=== PATIENT | female | born 1995 | race Caucasian/White ===

== ENCOUNTER 2022-05-26 09:09 | Outpatient (REF) | payer BC, SELFPAY ==
[2022-05-26 10:31] LABS: Hematocrit 40.6 % (37.0-47.0); Hemoglobin 12.6 g/dl (12.0-16.0); Mean Corpuscular Hemoglobin 26.6 pg (27.0-33.0); Mean Corpuscular Volume 85.7 fL (80.0-98.0); Mean Platelet Volume 8.5 fL (9.4-12.3); Platelet Count 434 X10*3/uL (160-400); Red Blood Count 4.74 X10*6/uL (4.20-5.50); Red Cell Distribution Width 13.6 % (11.0-16.0); White Blood Count 9.3 X10*3/uL (4.8-10.8)
[2022-05-26 11:08] LABS: Alanine Aminotransferase 26 U/L (0-31); Albumin Level 4.1 g/dL (3.5-5.0); Alkaline Phosphatase 99 U/L (39-117); Aspartate Amino Transferase 14 U/L (5-31); Bilirubin Direct 0.2 mg/dL (0.0-0.5); Bilirubin Total 0.6 mg/dL (0.0-1.0); Lipase 49 U/L (8-78)
[2022-06-03 10:29] LABS: 6-MMPN 1674 (<5700); 6-TGN 152 (235-400)
== END 2022-05-26 09:10 | disposition home or self-care (01) ==
LOC: HO.10HDL 09:09
PROVIDERS: Visit Provider Internal Medicine Gastroenterology
DX: K50.811 Crohn's disease of both small and large intestine with rectal bleeding (principal)
CPT/HCPCS: 36415; 80076; 80299; 83690; 85027

== ENCOUNTER 2022-07-02 09:57 | Outpatient (REF) | payer BC, SELFPAY ==
[2022-07-02 10:34] LABS: MANUAL DIFF FLAG NO
[2022-07-02 10:46] LABS: Basophils Percent Auto 0.9 % (0-2); Eosinophils Absolute Auto 0.1 X10*3/uL (0.0-0.4); Eosinophils Percent Auto 2.1 % (0-4); Hematocrit 37.5 % (37.0-47.0); Hemoglobin 11.9 g/dl (12.0-16.0); Imm Gran Abs Auto 0.03 X10*3/uL (0.00-0.03); Imm Gran Pct Auto 0.7 % (0.0-0.4); Lymphocytes Absolute Auto 1.2 X10*3/uL (1.2-4.9); Lymphocytes Percent Auto 29.2 % (20-40); Mean Corpuscular HGB Conc 31.7 g/dl (31.0-35.0); Mean Corpuscular Hemoglobin 27.7 pg (27.0-33.0); Mean Corpuscular Volume 87.2 fL (80.0-98.0); Mean Platelet Volume 8.7 fL (9.4-12.3); Monocytes Absolute Auto 0.4 X10*3/uL (0.1-1.2); Monocytes Percent Auto 8.7 % (2-11); Neutrophils Absolute Auto 2.5 x10*3/uL (2.0-8.3); Neutrophils Percent Auto 58.4 % (45-73); Platelet Count 347 X10*3/uL (160-400); Red Cell Distribution Width 16.2 % (11.0-16.0); White Blood Count 4.3 X10*3/uL (4.8-10.8)
[2022-07-02 11:18] LABS: Alanine Aminotransferase 15 U/L (0-31); Albumin Level 4.2 g/dL (3.5-5.0); Alkaline Phosphatase 134 U/L (39-117); Aspartate Amino Transferase 18 U/L (5-31); Bilirubin Direct 0.1 mg/dL (0.0-0.5); Bilirubin Total 0.4 mg/dL (0.0-1.0); Lipase 30 U/L (8-78); Total Protein 6.8 g/dL (6.5-8.0)
[2022-07-02 11:33] LABS: Erythrocyte Sedimentation Rate 12 MM/HR (0-20)
[2022-07-08 20:03] LABS: 6-MMPN 2541 (<5700); 6-TGN 169 (235-400)
== END 2022-07-02 09:58 | disposition home or self-care (01) ==
LOC: HO.10HDL 09:57
PROVIDERS: Visit Provider Internal Medicine Gastroenterology
DX: K50.811 Crohn's disease of both small and large intestine with rectal bleeding (principal)
CPT/HCPCS: 36415; 80076; 80299; 83690; 85025; 85652; 86140

== ENCOUNTER 2022-07-17 09:26 | Outpatient (REF) | payer BC, SELFPAY ==
--- NOTE | ~2022-07-17 | US_ITS ---
EXAMINATION: US ABDOMEN COMPLETE CLINICAL INFORMATION: Elevated LFTs. COMPARISON: None available. TECHNIQUE: Real-time imaging of the abdominal viscera. FINDINGS: PANCREAS: Normal. ABDOMINAL AORTA: The proximal, mid, and distal segments are normal in caliber. INFERIOR VENA CAVA: Visualized portions are normal. LIVER: The liver is normal in size. The liver contour is normal. Increased parenchymal echogenicity. No focal hepatic lesion. There is no intrahepatic biliary duct dilatation seen. GALLBLADDER: Normal. The gallbladder is physiologically distended without evidence of stones, sludge, polyps, wall thickening or pericholecystic fluid. COMMON BILE DUCT: Normal in caliber measuring 0.3 cm in diameter. RIGHT KIDNEY: Normal. No hydronephrosis. No renal calculi or focal parenchymal lesions. The kidney measures 11.4 cm in maximum dimension. LEFT KIDNEY: Normal. No hydronephrosis. No renal calculi or focal parenchymal lesions. The kidney measures 11.4 cm in maximum dimension. SPLEEN: Normal. The spleen measures 10.0 cm in maximum dimension. FREE FLUID: None. US/US abdomen complete IMPRESSION: Increased liver parenchymal echogenicity which could be seen with hepatic steatosis.
== END 2022-07-17 09:27 | disposition home or self-care (01) ==
LOC: HO.US 09:26
PROVIDERS: Visit Provider Internal Medicine Gastroenterology
DX: R79.89 Other specified abnormal findings of blood chemistry (principal); R94.5 Abnormal results of liver function studies
CPT/HCPCS: 76700

== ENCOUNTER 2022-09-02 09:40 | Outpatient (REF) | payer OTHER, SELFPAY ==
[2022-09-02 11:00] LABS: MANUAL DIFF FLAG NO
[2022-09-02 11:11] LABS: Basophils Percent Auto 0.7 % (0-2); Eosinophils Percent Auto 0.5 % (0-4); Hematocrit 39.3 % (37.0-47.0); Hemoglobin 12.3 g/dl (12.0-16.0); Imm Gran Abs Auto 0.07 X10*3/uL (0.00-0.03); Imm Gran Pct Auto 1.3 % (0.0-0.4); Lymphocytes Absolute Auto 1.2 X10*3/uL (1.2-4.9); Lymphocytes Percent Auto 21.9 % (20-40); Mean Corpuscular HGB Conc 31.3 g/dl (31.0-35.0); Mean Corpuscular Hemoglobin 27.4 pg (27.0-33.0); Mean Corpuscular Volume 87.5 fL (80.0-98.0); Mean Platelet Volume 8.4 fL (9.4-12.3); Monocytes Absolute Auto 0.3 X10*3/uL (0.1-1.2); Monocytes Percent Auto 4.5 % (2-11); Neutrophils Absolute Auto 3.9 x10*3/uL (2.0-8.3); Neutrophils Percent Auto 71.1 % (45-73); Platelet Count 353 X10*3/uL (160-400); Red Blood Count 4.49 X10*6/uL (4.20-5.50); Red Cell Distribution Width 14.7 % (11.0-16.0); White Blood Count 5.5 X10*3/uL (4.8-10.8)
[2022-09-02 11:32] LABS: Alanine Aminotransferase 13 U/L (0-31); Albumin Level 4.2 g/dL (3.5-5.0); Alkaline Phosphatase 109 U/L (39-117); Aspartate Amino Transferase 12 U/L (5-31); Bilirubin Direct 0.2 mg/dL (0.0-0.5); Bilirubin Total 0.4 mg/dL (0.0-1.0); C Reactive Protein 0.14 mg/dL (< or = 0.50); Lipase 38 U/L (8-78); Total Protein 7.4 g/dL (6.5-8.0)
[2022-09-02 11:59] LABS: Erythrocyte Sedimentation Rate 11 MM/HR (0-20)
[2022-09-04 17:04] LABS: TS Negative Control Passed; TS Panel A 0; TS Panel B 0; TS Positive Control Passed; TSpotTB Negative (Negative)
[2022-09-09 15:33] LABS: 6-MMPN 2139 (<5700); 6-TGN 234 (235-400)
== END 2022-09-02 09:41 | disposition home or self-care (01) ==
LOC: HO.10HDL 09:40
PROVIDERS: Visit Provider Internal Medicine Gastroenterology
DX: Z11.1 Encounter for screening for respiratory tuberculosis (principal); K50.811 Crohn's disease of both small and large intestine with rectal bleeding
CPT/HCPCS: 36415; 80076; 80299; 83690; 85025; 85652; 86140; 86481

== ENCOUNTER 2022-11-06 16:11 | Outpatient (REF) | payer OTHER, SELFPAY ==
[2022-11-06 16:30] LABS: MANUAL DIFF FLAG NO
[2022-11-06 17:26] LABS: Basophils Percent Auto 0.2 % (0-2); Hematocrit 40.4 % (37.0-47.0); Hemoglobin 12.4 g/dl (12.0-16.0); Imm Gran Abs Auto 0.12 X10*3/uL (0.00-0.03); Imm Gran Pct Auto 1.4 % (0.0-0.4); Lymphocytes Absolute Auto 0.7 X10*3/uL (1.2-4.9); Lymphocytes Percent Auto 8.5 % (20-40); Mean Corpuscular HGB Conc 30.7 g/dl (31.0-35.0); Mean Corpuscular Hemoglobin 26.6 pg (27.0-33.0); Mean Corpuscular Volume 86.5 fL (80.0-98.0); Mean Platelet Volume 8.6 fL (9.4-12.3); Monocytes Absolute Auto 0.4 X10*3/uL (0.1-1.2); Monocytes Percent Auto 4.3 % (2-11); Neutrophils Absolute Auto 7.4 x10*3/uL (2.0-8.3); Neutrophils Percent Auto 85.6 % (45-73); Platelet Count 368 X10*3/uL (160-400); Red Blood Count 4.67 X10*6/uL (4.20-5.50); Red Cell Distribution Width 14.9 % (11.0-16.0); White Blood Count 8.6 X10*3/uL (4.8-10.8)
[2022-11-06 17:48] LABS: Alanine Aminotransferase 14 U/L (0-31); Albumin Level 4.5 g/dL (3.5-5.0); Alkaline Phosphatase 101 U/L (39-117); Aspartate Amino Transferase 17 U/L (5-31); Bilirubin Direct 0.2 mg/dL (0.0-0.5); Bilirubin Total 0.4 mg/dL (0.0-1.0); C Reactive Protein < 0.10 mg/dL (< or = 0.50); Lipase 32 U/L (8-78); Total Protein 7.9 g/dL (6.5-8.0)
[2022-11-06 18:09] LABS: Erythrocyte Sedimentation Rate 7 MM/HR (0-20)
[2022-11-12 14:13] LABS: 6-MMPN 2625 (<5700); 6-TGN 125 (235-400)
== END 2022-11-06 16:12 | disposition home or self-care (01) ==
LOC: HO.LAB 16:11
PROVIDERS: PCP Internal Medicine; Visit Provider Internal Medicine Gastroenterology
DX: K50.811 Crohn's disease of both small and large intestine with rectal bleeding (principal)
CPT/HCPCS: 36415; 80076; 80299; 83690; 85025; 85652; 86140

== ENCOUNTER 2023-05-08 07:46 | Outpatient (REF) | payer OTHER, SELFPAY ==
[2023-05-08 07:49] VITALS: BP 127/72; PULSE 104; RESP 20; TEMP 36.5; O2SAT 100
[2023-05-08] MEDS: Risankizumab-rzaa 600 MG in Dextrose 5 % 250 ML 260 MG IV (09:18)
[2023-05-08 10:10] VITALS: BP 117/60; PULSE 81; TEMP 27.2
== END 2023-05-08 07:47 | disposition home or self-care (01) ==
LOC: HO.MDS 07:46
PROVIDERS: Visit Provider Internal Medicine Gastroenterology
DX: K50.90 Crohn's disease, unspecified, without complications (principal)
CPT/HCPCS: 96365; J2327

== ENCOUNTER 2023-07-03 09:00 | Outpatient (RCR) | payer OTHER, SELFPAY ==
[2023-06-05 09:04] VITALS: BP 117/72; PULSE 102; RESP 18; TEMP 36.7
[2023-06-05] MEDS: Risankizumab-rzaa 600 MG in Dextrose 5 % 250 ML 260 MG IV (10:06)
[2023-07-03 09:02] VITALS: BP 131/68; PULSE 95; RESP 20; TEMP 36.9; O2SAT 97
[2023-07-03] MEDS: Risankizumab-rzaa 600 MG in Dextrose 5 % 250 ML 260 MG IV (09:54)
== END 2023-07-03 15:27 | disposition home or self-care (01) ==
LOC: HO.INF 09:00
PROVIDERS: Visit Provider Internal Medicine Gastroenterology
DX: K50.90 Crohn's disease, unspecified, without complications (principal)
CPT/HCPCS: 96365; J2327

== ENCOUNTER 2023-07-08 12:19 | Outpatient (REF) | payer OTHER, SELFPAY ==
[2023-07-08 13:00] LABS: MANUAL DIFF FLAG NO
[2023-07-08 13:06] LABS: Basophils Absolute Auto 0.1 X10*3/uL (0.0-0.2); Basophils Percent Auto 1.1 % (0-2); Eosinophils Absolute Auto 0.1 X10*3/uL (0.0-0.4); Eosinophils Percent Auto 1.6 % (0-4); Hematocrit 41.2 % (37.0-47.0); Hemoglobin 13.2 g/dl (12.0-16.0); Imm Gran Abs Auto 0.02 X10*3/uL (0.00-0.03); Imm Gran Pct Auto 0.4 % (0.0-0.4); Lymphocytes Absolute Auto 1.9 X10*3/uL (1.2-4.9); Lymphocytes Percent Auto 32.8 % (20-40); Mean Corpuscular Hemoglobin 28.3 pg (27.0-33.0); Mean Corpuscular Volume 88.2 fL (80.0-98.0); Mean Platelet Volume 8.7 fL (9.4-12.3); Monocytes Absolute Auto 0.7 X10*3/uL (0.1-1.2); Monocytes Percent Auto 12.2 % (2-11); Neutrophils Absolute Auto 2.9 x10*3/uL (2.0-8.3); Neutrophils Percent Auto 51.9 % (45-73); Platelet Count 302 X10*3/uL (160-400); Red Blood Count 4.67 X10*6/uL (4.20-5.50); Red Cell Distribution Width 14.5 % (11.0-16.0); White Blood Count 5.6 X10*3/uL (4.8-10.8)
[2023-07-08 13:21] LABS: Alanine Aminotransferase 11 U/L (0-31); Albumin Level 4.2 g/dL (3.5-5.0); Alkaline Phosphatase 163 U/L (39-117); Aspartate Amino Transferase 14 U/L (5-31); Bilirubin Direct 0.1 mg/dL (0.0-0.5); Bilirubin Total 0.4 mg/dL (0.0-1.0); C Reactive Protein 0.16 mg/dL (< or = 0.50); Lipase 30 U/L (8-78); Total Protein 7.5 g/dL (6.5-8.0)
[2023-07-08 13:44] LABS: Erythrocyte Sedimentation Rate 10 MM/HR (0-20)
[2023-07-15 19:53] LABS: 6-MMPN <500 (<5700); 6-TGN 106 (235-400)
== END 2023-07-08 12:20 | disposition home or self-care (01) ==
LOC: HO.10HDL 12:19
PROVIDERS: Visit Provider Internal Medicine Gastroenterology
DX: K50.811 Crohn's disease of both small and large intestine with rectal bleeding (principal)
CPT/HCPCS: 36415; 80076; 80299; 83690; 85025; 85652; 86140

== ENCOUNTER 2024-03-14 07:51 | Outpatient (REF) | payer OTHER, SELFPAY ==
--- OUTSIDE RECORDS SUMMARY | 2024-03-14 07:54 | XMS_ITS ---
Author Organization [facility] Address [address] [facility] [address] [place] [address] Care Team Providers Care Field Hand Name Role Phone TEVIN PELAEZ Primary Care Provider UnavailDeclan Cassidy Jr [phone] REASON FOR VISIT labs Encounters Encounter Location Date Provider Diagnosis [facility] [address] [place] [address] [address] [place] [address] 07/16/2023 Declan Raphael Jr PLAN OF TREATMENT Next Appt Details Provider Name:Declan castro Jr, 03/28/2024 09:40:00 AM, [address] [place] [address], [address], [place], [address],
--- OUTSIDE RECORDS SUMMARY | 2024-03-14 07:55 | XMS_ITS | Patient Health Record ---
Author Organization [facility] Address [address] [place] [address] Care Team Providers Care Charter Boat Captain Name Role Phone TEVIN PELAEZ Primary Care Provider Declan Sims Jr Unavailable [phone] ALLERGIES Allergen (clinical drug ingredient) Drug/Non Drug Allergy documented on EMR Reaction Allergy Type Onset Date Status Latex Latex Unknown Allergy Active amoxicillin Amoxicillin Unknown Drug Allergy Act brenda Keflex Unknown Drug Allergy Active metronidazole Flagyl Unknown Drug Allergy Act brenda sulfamethoxazole / trimethoprim Bactrim Unknown Drug Allergy Active doxycycline Doxycycline Unknown Drug Allergy Act brenda Substance with sulfonamide structure and antibacterial mechanism of action (substance) Sulfa Antibiotics Unknown Drug Allergy A ctive RESULTS Component Value Reference Range Notes Thiopurine Metabolites Reviewed date:07/16/2023 10:47:01 AM Interpretation: Performing Lab:[facility], [address] [place] [id number] Notes/Report: 6-TGN 106 235-400 Result Units: pmol/8x10(8)RBC This test was developed and its analytical performance characteristics have been determined by [facility]. It has not been cleared or approved by the FDA. This assay has been validated pursuant to the CLIA regulations and is used for clinical purposes. 6-MMPN <500 <5700 Result Units: pmol/8x10(8)RBC These results are useful in assessing a patient's metabolism of azathioprine (AZA) or 6-mercaptopurine (6-MP). A 6-thioguanine (6-TG) level greater than 235 pmol/8x10(8) RBC has been associated with remission and very high levels have been associated with leucopenia. 6-methylmercaptopurine (6-MMP) levels greater than 5700 pmol/8x10(8) RBC may be associated with hepatoxicity. This test was developed and its analytical performance characteristics have been determined by [facility]. It has not been cleared or approved by the FDA. This assay has been validated pursuant to the CLIA regulations and is used for clinical purposes. THIS TEST WAS PERFORMED AT: [facility] [address] [place] [address] LASHAY KAPLAN MD Complete Blood Count Auto Di ff Reviewed date:07/09/2023 08:13:47 AM Interpretation: Performing Lab:[facility], [address] [place] [phone] Notes/Report: White Blood Count 5.6 4.8-10.8 X10*3/uL Red Blood Count 4.67 4.20-5.50 X10*6/uL Hemoglobin 13.2 12.0-16.0 g/dl Hematocrit 41.2 37.0-47.0 % Mean Corpuscular Volume 88.2 80.0-98.0 fL Mean Corpuscular Hemoglobin 28.3 27.0-33.0 pg Mean Corpuscular HGB Conc 32.0 31.0-35.0 g/dl Red Cell Distribution Width 14.5 11.0-16.0 % Platelet Count 302 160-400 X10*3/uL Mean Platelet Volume 8.7 9.4-12.3 fL Neutrophils Percent Auto 51.9 45-73 % Imm Gran Pct Auto 0.4 0.0-0.4 % Lymphocytes Percent Auto 32.8 20-40 % Monocytes Percent Auto 12.2 2-11 % Eosinophils Percent Auto 1.6 0-4 % Basophils Percent Auto 1.1 0-2 % NRBC Pct Auto 0.0 0.0-0.2 /100WBC Neutrophils Absolute Auto 2.9 2.0-8.3 x10*3/u L Imm Gran Abs Auto 0.02 0.00-0.03 X10*3/uL Lymphocytes Absolute Auto 1.9 1.2-4.9 X10*3/u L Monocytes Absolute Auto 0.7 0.1-1.2 X10*3/uL Eosinophils Absolute Auto 0.1 0.0-0.4 X10*3/u L Basophils Absolute Auto 0.1 0.0-0.2 X10*3/uL NRBC Abs Auto 0.000 0.0-0.012 X10*3/uL Erythrocyte Sedimentation Ra te Reviewed date:07/09/2023 08:13:52 AM Interpretation: Performing Lab:[facility], [address] [place] [phone] Notes/Report: Erythrocyte Sedimentation Rate 10 0-20 MM/HR Patients with polycythemia and many hemoglobin abnormalities may have depressed sed rates whereas patients with anemia may have elevated sed rates. Liver Panel Reviewed date:07/09/2023 08:14:32 AM Interpretation: Performing Lab:[address] [address] Notes/Report: Bilirubin Total 0.4 0.0-1.0 mg/dL Bilirubin Direct 0.1 0.0-0.5 mg/dL Aspartate Amino Transferase 14 5-31 U/L Alanine Aminotransferase 11 0-31 U/L Total Protein 7.5 6.5-8.0 g/dL Albumin Level 4.2 3.5-5.0 g/dL Alkaline Phosphatase 163 39-117 U/L C Reactive Protein Reviewed date:07/09/2023 08:14:22 AM Interpretation: Performing Lab:[facility], [address] [place] [phone] Notes/Report: C Reactive Protein 0.16 < or = 0.50 mg/dL Lipase Reviewed date:07/09/2023 08:14:11 AM Interpretation: Performing Lab:[address] [phone] Notes/Report: Lipase 30 8-78 U/L REASON FOR REFERRAL No Information MEDICATIONS Medication SIG (Take, Route, Frequency, Duration) Notes Start Date End Date Status Skyrizi 360 MG/2.4ML Inject 1 Subcutaneo us every 8 weeks 10/13/2023 Active Humira 40 MG/0.8ML 0.8 mL Subcutaneous every 2 weeks 11/17/2022 Active Clopidogrel Bisulfate 75 MG TAKE 1 TABLE T BY MOUTH EVERY DAY Oral for 30 Active Aspirin Low Dose 81 MG TAKE 1 TABLET BY MOUTH EVERY DAY Oral for 90 Active LORazepam 0.5 MG 1 tablet at bedtime as needed Orally Once a day Active Cetirizine HCl 10 MG 1 tablet Orally Onc e a day for 30 day(s) Active Skyrizi 150 MG/ML 1 mL Subcutaneous fo r 30 day(s) Active azaTHIOprine 100 MG 3 talets daily Orall y once a day Active Citalopram Hydrobromide 10 MG TAKE 1/2 TABLET BY MOUTH DAILY FOR 1 WEEK THEN INCREASE TO 1 TABLET DAILY Oral for 90 Active Norethindrone 0.35 MG Oral for 84 Active Pantoprazole Sodium 40 MG Oral for 30 Active IMMUNIZATIONS Vaccine Route Administration Date Status Comme nts Influenza Unknown 12/03/2021 Administered Influenza Unknown 12/09/2022 Administered SOCIAL HISTORY Tobacco Use: Social History Observation Description Date Details (start date - stop date) Never Smoker NA - NA Sex Assigned At : Social History Observation Description Sex Assigned At Unknown Tobacco Use/Smoking Question Answer Notes Patient is a nonsmoker Alcohol Screen Question Answer Notes Did you have a drink containing alcohol in the p ast year? No Points 0 Interpretation Negative PROBLEMS Problem Type ICD Code Onset Dates Problem Status W/U Status Risk SNOMED Code Notes Problem Crohn's disease of both small and large intestine with rectal bleeding (K50.811) Active confirmed 68062026 VITAL SIGNS Temperature 98.6 degrees Fahrenheit 07/08/2023 Blood pressure diastolic 00 mm Hg 07/08/2023 Height 65 in 07/08/2023 Blood pressure systolic 000 mm Hg 07/08/2023 Weight 187 lb 6 oz lbs 07/08/2023 BMI 31.18 kg/m2 07/08/2023 Encounters Encounter Location Date Provider Diagnosis [facility] [address] [place] [phone] 05/04/2023 Declan Raphael Jr [facility] [address] [place] [phone] 07/08/2023 Declan Raphael Jr Crohn's disease of both small and large intestine with rectal bleeding K50.811 [facility] [address] [facility] [place] [address] 01/06/2024 Declan Raphael Jr [facility] [address] [place], [place] [address] [place] [address] 03/27/2023 Declan Raphael Jr [facility] [address] [place] [phone] 04/03/2023 Declan Raphael Jr [facility] [address] [place] [phone] 07/16/2023 Declan Raphael Jr [facility] [address] [place] [phone] 10/13/2023 Declan Raphael Jr Crohn's disease of both small and large intestine with rectal bleeding K50.811 ASSESSMENTS Encounter Date Diagnosis Assessment Notes Treatment Notes Treatment Clinical Notes 07/08/2023 Crohn's disease of both small and large intestine with rectal bleeding (ICD-10 - K50.811) 10/13/2023 Crohn's disease of both small and large intestine with rectal bleeding (ICD-10 - K50.811) Labs to be done after third injection of higher dose Skyrizi PLAN OF TREATMENT Pending Test Test Name Order Date LIVER PROFILE 06/05/2022 LIVER PROFILE 04/28/2022 LIVER PROFILE 08/29/2022 LIVER PROFILE 10/13/2023 LIVER PROFILE 07/08/2023 LIVER PROFILE 11/06/2022 LIPASE 06/05/2022 LIPASE 04/28/2022 LIPASE 08/29/2022 LIPASE 07/08/2023 LIPASE 11/06/2022 CRP 06/05/2022 CRP 10/13/2023 CRP 08/29/2022 CRP 07/08/2023 CRP 11/06/2022 CBC w DIFF 06/05/2022 CBC w DIFF 08/29/2022 CBC w DIFF 07/08/2023 CBC with MANUAL DIFFERENTIAL 10/13/2023 CBC w/o DIFF 11/06/2022 CBC w/o DIFF 04/28/2022 SED RATE (ESR) 08/29/2022 SED RATE (ESR) 07/08/2023 SED RATE (ESR) 11/06/2022 SED RATE (ESR) 06/05/2022 SED RATE (ESR) 10/13/2023 US ABD 07/03/2022 PROMETHEUS ANSER UST 10/13/2023 T Spot TB 08/29/2022 Thiopurine Metabolites 04/28/2022 Thiopurine Metabolites 06/05/2022 Next Appt Details Provider Name:Declan Burdick castro Jr, 03/28/2024 09:40:00 AM, [address] [facility], [address], [place], [address], Insurance Providers Payer Name Payer Address Payer Phone Subscriber Number Group Number Insured Name Patient Relationship to Insured Coverage Start Date Coverage End Date [facility] [address] [place] [phone] [id number] ANGELSE ONOFRE Self - patient is the insured MEDICAL (GENERAL) HISTORY Medical History History ICD Code Crohn's disease small and la rge intestine, diagnosed at colonoscopy 03/10. Initial treatment prednisone/Imuran, Imuran dosing reduced to 100 mg daily from 150 secondary to vomiting and abdominal pain 07/08, recurrent symptoms below 20 mg of prednisone taper, Humira started after aneurysm treatment and bar exam, 12/08. Skyrizi started 05/09 for co-treatment of psoriasis and Crohn's. 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
--- OUTSIDE RECORDS SUMMARY | 2024-03-14 07:55 | XMS_ITS ---
Author Organization [facility] Address [address] [facility] [address] [place] [address] Care Team Providers Care Maintenance Helper Name Role Phone TEVIN PELAEZ Primary Care Provider Declan Sims Jr REASON FOR VISIT crohn's Encounters Encounter Location Date Provider Diagnosis [facility] [address] [place] [address] [address] [place] [address] 01/06/2024 Declan Raphael Jr PLAN OF TREATMENT Next Appt Details Provider Name:Declan castro Jr, 03/28/2024 09:40:00 AM, [address] [facility], [address], [place], [address],
--- OUTSIDE RECORDS SUMMARY | 2024-03-14 07:55 | XMS_ITS | Data Portability ---
Author Organization MALENA Rios s [address] Address [address] [place] [address] Care Team Providers Care Director Data Management Name Role Phone RHODA GILLIAM Primary Care Provider Assessment No assessment recorded. Plan of Treatment Reminders Order Date Submit Date Provider Last Modified By Organization Details Last Modified Time Details Appointments None recorded. Lab rapid flu (A+B) 2022 023 [email or web address] [facility] [address], [address] [place], [address], 3 13:11:16 urinalysis, dipstick 2022 023 antonioShyanne 2099[facility] [address], [address] [place], [address], 3 13:11:16 test, urine 2022 023 [facility] [address] [place] [address] [address], [address] [place], [address], 3 13:11:16 culture, urine 2022 023 [place] [facility], [address] [place] [address], [place], [address], 3 06:07:32 Referral emergency medicine referral - Abdominal pain with multiple complaints, including crohn's disease UTI and pyleonephri tis? Need further evaluation and treatment , diffuse abdominal pain. Complex medical history. 2022 023 [email or web address] a1 [facility], [address] [place], [address], 13:21:12 Procedures None recorded. Surgeries None recorded. Imaging None recorded. Medication Orders Macrobid 100 mg capsule 2022 023 [facility][id number], [address] [place], [address], 11:01:41 ofloxacin 0.3 % ear drops 2022 023 [facility][id number], [address] [place], [address], 11:32:16 Patient TargetsNo targets recorded. Patient Instructions Encounter Date Encounter Id Patient Instructions Last Modified By Organization Details Last Modified Time 05/13/2022 [id number] Abdominal pain c an have a wide variety of causes. Although we currently do not believe your pain is related to appendicitis or other serious cause, we cannot totally exclude the possibility of your symptoms being due a serious underlying problem. It is possible for potentially serious problems, such as appendicitis, to start with symptoms that are mild and appear non-threatening, only to become more severe later on. You should follow up as instructed and if your pain worsens, you should not hesitate to go to the Emergency Department to have your condition further evaluated. You should also follow up immediately if you develop any new symptoms which concern you, such as fever, nausea, vomiting, rectal bleeding, or any other symptom that concerns you. Not available 05/13/2022 13:05:38 09/13/2022 [id number] Water in the ear , from swimming or bathing, makes the ear canal prone to infection. Hot and humid weather also predisposes to infection. Symptoms of otitis externa include: ear pain, fullness or itching in the ear, ear drainage, and temporary loss of hearing. These symptoms are similar to those caused by otitis media (middle ear infection). To differentiate between external ear infection and middle ear infection, the provider looks in the ear with an instrument called an otoscope. It is important to distinguish between the two infections, as they are treated differently: External otitis is treated with drops in the ear canal, while middle ear infection is sometimes treated with an antibiotic by mouth. MEASURES YOU SHOULD TAKE TO HELP TREAT EXTERNAL EAR INFECTION: 1. Use the ear drops regularly, as directed on the prescription. 2. The malhotra to treatment is getting the drops down into the canal and keeping the medicine there. To accomplish this: Lie on your side, with the unaffected ear down. Put three to four drops in the infected ear canal, then gently pull the outer ear back and forth several times, working the medicine deeper into the ear canal. Remain still, msvy-uek-dgtn-down for about 15 minutes. 3. Keep the ear as dry as possible. Swimming should be postponed until the infection has cleared. Try to avoid getting water in the ear when bathing. If water does get in the ear, the canal can be gently dried with a hair blow dryer. Use the low heat setting, and keep the blow dryer about six inches from the ear. 4. Htbf-dty-xbfsaxz pain medications can relieve discomfort associated with external otitis. Acetaminophen (Tylenol), ibuprofen, or naproxen can be taken, depending on individual preference. 5. Return to the [facility] in about one week. The provider can check to make sure the infection has cleared, continue the medicine if needed, okay a return to swimming, etc. 6. To prevent repeated episodes of otitis externa, try to keep the ear canal dry. Gentle swabbing with Q-tips (never deep into the canal), along with a hair blow dryer (low heat), can be used to dry the ear canal if it gets wet. 7. Should you develop severe pain, fever, severe headache, or stiff neck, see your personal/referral doctor or go to the closest emergency department promptly. Otitis externa does not normally cause these symptoms; another problem, requiring different treatment, could be present Not available 09/13/2022 11:32:13 Reason for Referral Emergency Medicine Referral for Abdominal pain Abdominal pain with multiple complaints, including crohn's disease UTI and pyleonephritis? Need further evaluation and treatment , diffuse abdominal pain. Complex medical history. Referring Physician: Hima Bernardo, Urgent Care, Encounter Date: 05/13/2022 Results Created Date Observation Date Name Description Value Unit Range Abnormal Flag Note LastModifiedBy Organization Detail LastModifiedTime 03/28/20 23 05/15/2022 URINE CULTU RE, ROUTI NE urine culture, routine FINAL REPORT Not Available [facility] ([facility]) [address] [place], [address], 05/15/2022 06:07:32 05/14/19 23 05/15/2022 URINE CULTU RE, ROUTI NE result 1 COMMEN T Cultu re shows less than 10,00 0 colon y formi ng units of bacte alton per doc liter of urine . This colon y count is not gener ally consi dered to be clini felicitas signi fican t. Not Available [facility] ([facility]) [address] [facility], [place], [address], 05/15/2022 06:07:32 05/14/19 23 05/13/2022 rapid flu (A+B) Unknown Analyte Normal = Negati ve Not Available [address] [place], [address], 05/13/2022 12:35:31 05/14/19 23 05/13/2022 rapid flu (A+B) Unknown Analyte negati ve Not Available [address] [place], [address], 05/13/2022 12:35:31 05/14/19 23 05/13/2022 rapid flu (A+B) Unknown Analyte Normal = Negati ve Not Available [address] [place], [address], 05/13/2022 12:35:31 05/14/19 23 05/13/2022 rapid flu (A+B) Unknown Analyte negati ve Not Available [address] [place], [address], 05/13/2022 12:35:31 03/28/05/13/2022 pregn brooke test, urine Unknown Analyte Normal = Negati ve Not Available [facility] [address] [place], [address], 05/13/2022 12:32:10 05/14/19 23 05/13/2022 pregn brooke test, urine Unknown Analyte negati ve Not Available [facility] [place], [address], 05/13/2022 12:32:10 05/14/19 23 05/13/2022 urina lysis , dipst ick Unknown Analyte Normal = light yellow Not Available [address] [address] [place], [address], 05/13/2022 12:31:57 05/14/1905/13/2022 urina lysis , dipst ick Unknown Analyte Yellow Not Available [address] [place] [address] [address] [place], [address], 05/13/2022 12:31:57 05/14/1905/13/2022 urina lysis , dipst ick Unknown Analyte Normal = clear Not Available [address] [place], [address], 05/13/2022 12:31:57 05/14/1905/13/2022 urina lysis , dipst ick Unknown Analyte Slight ly Cloudy Not Available [address] [place], [address], 05/13/2022 12:31:57 05/14/19 23 05/13/2022 urina lysis , dipst ick Unknown Analyte Normal = negati ve Not Available [address] [place], [address], 05/13/2022 12:31:57 05/14/1905/13/2022 urina lysis , dipst ick Unknown Analyte Negati ve Not Available _[facility] [address] [place], [address], 05/13/2022 12:31:57 05/14/19 23 05/13/2022 urina lysis , dipst ick Unknown Analyte Normal = Negati ve Not Available ainsley montoya [address] [place], [address], 05/13/2022 12:31:57 05/14/1905/13/2022 urina lysis , dipst ick Unknown Analyte Negati ve Not Available [facility] mont[facility] [address] [place], [address], 05/13/2022 12:31:57 05/14/19 23 05/13/2022 urina lysis , dipst ick Unknown Analyte Normal = Negati ve Not Available [facility] [address] [place], [address], 05/13/2022 12:31:57 05/14/1905/13/2022 urina lysis , dipst ick Unknown Analyte Trace Not Available [address] [place] [address] [address] [place], [address], 05/13/2022 12:31:57 05/14/1905/13/2022 urina lysis , dipst ick Unknown Analyte Normal = 1.010, 1.015, 1.020 Not Available ains[facility] mont[facility] [address] [place], [address], 05/13/2022 12:31:57 05/14/19 23 05/13/2022 urina lysis , dipst ick Unknown Analyte 1.020 Not Available 2099 [facility] [address] [place], [address], 05/13/2022 12:31:57 05/14/19 23 05/13/2022 urina lysis , dipst ick Unknown Analyte Normal = Negati ve Not Available [address] [place], [address], 05/13/2022 12:31:57 05/14/19 23 05/13/2022 urina lysis , dipst ick Unknown Analyte Large Not Available 2099 [facility] [address] [place], [address], 05/13/2022 12:31:57 05/14/1905/13/2022 urina lysis , dipst ick Unknown Analyte Normal = 6.5, 7.0, 7.5, 8.0 Not Available [facility] [address] [place], [address], 05/13/2022 12:31:57 05/14/19 23 05/13/2022 urina lysis , dipst ick Unknown Analyte 6.0 Not Available 2099 [facility] [address] [place], [address], 05/13/2022 12:31:57 05/14/19 23 05/13/2022 urina lysis , dipst ick Unknown Analyte Normal = Negati ve Not Available [address] [place], [address], 05/13/2022 12:31:57 05/14/19 23 05/13/2022 urina lysis , dipst ick Unknown Analyte 100 mg/dL Not Available [facility] [address] [place], [address], 05/13/2022 12:31:57 05/14/19 23 05/13/2022 urina lysis , dipst ick Unknown Analyte Normal = 0.2, 1.0 Not Available [facility] [address] [place], [address], 05/13/2022 12:31:57 05/14/1905/13/2022 urina lysis , dipst ick Unknown Analyte 1.0 E.U./d L Not Available [facility] [address] [place], [address], 05/13/2022 12:31:57 05/14/1905/13/2022 urina lysis , dipst ick Unknown Analyte Normal = Negati ve Not Available [facility] [address] [place], [address], 05/13/2022 12:31:57 05/14/1905/13/2022 urina lysis , dipst ick Unknown Analyte Negati ve Not Available [facility] [address] [place], [address], 05/13/2022 12:31:57 05/14/1905/13/2022 urina lysis , dipst ick Unknown Analyte Normal = Negati ve Not Available [facility] [address] [place], [address], 05/13/2022 12:31:57 05/14/1905/13/2022 urina lysis , dipst ick Unknown Analyte Trace Not Available [facility] [address] [place], [address], 05/13/2022 12:31:57 Result Notes None recorded. Problems Name Problem SNOMED Code Status Onset Date Resolution Date Notes Provider Name and Address Organization Details Recorded Time Intracranial aneurysm 133041837 Active 2022 MALENA Hunter [facility] 11:02:36 Crohn's disease 50128398 Active Tyrell Lane null, PA - [facility] 3 12:31:38 Acid reflux 001676313 Active Tyrell mcconnell, PA - [facility] 3 12:31:53 Problem Notes None recorded. Procedures Surgical History Date Name Laterality Status Provider Name and Address Organization Details Recorded Time Appendectomy completed Tyrell Sherman PA - [facility] 05/13/2022 12:32:10 Knee arthroscopy/surge ry completed Tyrell Sherman PA - [facility] 05/13/2022 12:32:16 Imaging Results None recorded. Procedure Notes None recorded. Medical Equipment None Reported. Allergies Allergen ID Allergen Name Allergen Category Reaction Reaction Severity Criticality Documentation Date Start Date Code Code System Note Provider Name and Address Organization Details Recorded Time 924667 Bactrim medicatio n rash Not available Not available 05/13/2022 02076 9 RxNorm Tyrell mcconnell, PA - [facility] 3 12:28:32 523334 Flagyl medicatio n rash Not available Not available 05/13/202225628 6 RxNorm Tyrell mcconnell, PA - [facility] 3 12:28:42 850487 Keflex medicatio n rash Not available Not available 05/13/202201182 7 RxNorm Tyrell mcconnell, PA - [facility] 3 12:28:52 919045 Substance with sulfonami de structure and antibacte rial mechanism of action (substanc e) medicatio n rash Not available Not available 05/13/2022 37236 8003 SNOMED Tyrell mcconnell, PA - [facility] 3 12:29:01 911938 amoxicill in medicatio n rash Not available Not available 05/13/2022 723 RxNorm Tyrell mcconnell, PA - [facility] 3 12:29:06 100571 doxycycli ne Not available rash Not available Not available 05/13/2022 3640 RxNorm Tyrell mcconnell, PA - [facility] 3 12:29:15 Medications Name Sig Start Date Stop Date Status Note LastModified by Organization Details LastModified Time prednisone 10 mg tablet TAKE 3 TABLETS BY MOUTH ONCE A DAY DIRECTED 30 DAYS active Not Available Not Available No t Available ofloxacin 0.3 % eye drops INSTILL 1 DROP IN RIGHT EYE TWICE A DAY FOR 7-10 DAYS 05/13 completed Not Available Not Available Not Available citalopram 10 mg tablet TAKE 1/2 TABLET BY MOUTH DAILY FOR 1 WEEK AND THEN INCREASE TO 1 FULL TABLET DAILY. active Not Available Not Available No t Available valacyclovi r 1 gram tablet TAKE 1 TABLET BY MOUTH 3 TIMES A DAY FOR 7 DAYS 05/13 completed Not Available Not Available Not Available sucralfate 1 gram tablet TAKE 1 TABLET BY MOUTH 3 TIMES A DAY BEFORE MEALS AND BEDTIME,O N AN EMPTY STOMACH DISSOLVE IN WATER 05/13 completed Not Available Not Available Not Available phenazopyri dine 200 mg tablet PLEASE SEE ATTACHED FOR DETAILED DIRECTION S 05/13 completed Not Available Not Available Not Available prednisone 20 mg tablet TAKE 3 TABLET BY MOUTH DAILY,X7 DAYS 05/13 completed Not Available Not Available Not Available prednisone 5 mg tablet TAKE 8 TABLETS DAILY FOR 1 WEEK THEN TAPER BY 1 TABLET WEEKLY DIRECTED 09/13 completed Not Available Not Available Not Available azathioprin e 50 mg tablet TAKE 2 TABLETS BY MOUTH EVERY DAY active Not Available Not Available No t Available peg-electro lyte solution 420 gram oral solution DRINK 240 ML BY MOUTH EVERY 10 MINUTES 05/13 completed Not Available Not Available Not Available omeprazole 40 mg capsule,del ayed release TAKE 1 CAPSULE BY MOUTH EVERY DAY 05/13 completed Not Available Not Available Not Available vancomycin 125 mg capsule TAKE 1 CAPSULE BY MOUTH EVERY 6 HOURS FOR 10 DAYS 05/13 completed Not Available Not Available Not Available ketorolac 0.5 % eye drops INSTILL 1 DROP INTO RIGHT EYE 4 TIMES A DAY AND 1 DROP INTO LEFT EYE TWICE A DAY 05/13 completed Not Available Not Available Not Available ofloxacin 0.3 % ear drops INSTILL 5 DROPS INTO AFFECTED EAR(S) BY OTIC ROUTE TWICE DAILY X 10 DAYS. 2022 active Not Available Not Available Not Avai lable prednisolon e acetate 1 % eye drops,suspe nsion PUT 1 DROP INTO RIGHT EYE 4 TIMES A DAY AND 1 DROP INTO LEFT EYE TWICE A DAY 05/13 completed Not Available Not Available Not Available lorazepam 0.5 mg tablet TAKE 1 TABLET BY MOUTH TWICE A DAY NEEDED ANXIETY active Not Available Not Available No t Available metoclopram charito 5 mg tablet TAKE 1 TABLET BY MOUTH 3 TIMES A DAY BEFORE MEALS AND BEDTIME NEEDED NAUSEA FOR 10 DAYS 05/13 completed Not Available Not Available Not Available pantoprazol e 40 mg tablet,cyndee yed release TAKE 1 TABLET BY MOUTH TWICE A DAY active Not Available Not Available No t Available omeprazole 20 mg capsule,del ayed release TAKE 1 CAPSULE BY MOUTH TWICE A DAY 05/13 completed Not Available Not Available Not Available levofloxaci n 750 mg tablet TAKE 1 TABLET BY MOUTH DAILY,X10 DAYS. TAKE WITH FOOD. 05/13 completed Not Available Not Available Not Available norethindro ne (contracept brenda) 0.35 mg tablet TAKE 1 TABLET BY MOUTH EVERY DAY active Not Available Not Available No t Available ondansetron 4 mg disintegrat ing tablet TAKE 1 TABLET BY MOUTH EVERY 8 HOURS NEEDED FOR NAUSEA AND VOMITING FOR 3 DAYS 09/13 completed Not Available Not Available Not Available oxycodone 5 mg tablet TAKE 1 TABLET BY MOUTH EVERY 6 HOURS NEEDED SEVERE PAIN FOR 3 DAYS 09/13 completed Not Available Not Available Not Available nitrofurant oin monohydrate /macrocryst als 100 mg capsule TAKE 1 CAPSULE BY MOUTH TWICE A DAY FOR 7 DAYS 05/13 completed Not Available Not Available Not Available L norgest/E estradiol-E estrad 0.15 mg-30 mcg (84)/10 mcg(7) tabs,3mos TAKE 1 TABLET BY MOUTH EVERY DAY active Not Available Not Available No t Available Besivance 0.6 % eye drops,suspe nsion INSTILL 1 DROP INTO RIGHT EYE 3 TIMES A DAY FOR 7 DAYS 05/13 completed Not Available Not Available Not Available Vitals Date Recorded Body height Provider Name an d Address Organization Details Last Updated DateTime 05/13/2022 165.1 cm Tyrell Cabrera [facility] 05/13/2022 12:27:38 Date Recorded Body mass index (BMI) Body weight Provider Name and Address Organization Details Last Updated DateTime 05/13/2022 30.8 kg/m2 97550.59 g Tyrell [facility] 05/13/2022 12:27:42 Date Recorded Oxygen saturation Oxygen saturation in Arterial blood by Pulse oximetry Provider Name and Address Organization Details Last Updated DateTime 05/13/2022 97 % 97 % Tyrell Sherman PA - [facility] 05/13/2022 12:27:59 Date Recorded Pain severity - 0-10 verbal numeric rating [Score] - Reported Provider Name and Address Organization Details Last Updated DateTime 05/13/2022 6 Tyrell Sherman PA - [facility] 05/13/2022 12:28:01 Date Recorded Heart rate Provider Name an d Address Organization Details Last Updated DateTime 05/13/2022 109 /min Tyrell Sherman PA - [facility] 05/13/2022 12:28:06 Date Recorded Respiratory rate Provider Name a nd Address Organization Details Last Updated DateTime 05/13/2022 18 /min Tyrell Sherman PA - [facility] 05/13/2022 12:28:08 Date Recorded Body temperature Provider Name a nd Address Organization Details Last Updated DateTime 05/13/2022 97.9 [degF] Tyrell Sherman PA - [facility] 05/13/2022 12:28:18 Date Recorded Body height Provider Name an d Address Organization Details Last Updated DateTime 09/13/2022 169.55 cm ZIYADREINA BAUMJENNIFERJania PA - [facility] 09/13/2022 11:06:36 Date Recorded Pain severity - 0-10 verbal numeric rating [Score] - Reported Provider Name and Address Organization Details Last Updated DateTime 09/13/2022 5 ZIYAD ARGUELLES PA - [facility] 09/13/2022 11:04:15 Date Recorded Respiratory rate Provider Name a nd Address Organization Details Last Updated DateTime 09/13/2022 16 /min ZIYAD ARGUELLES PA - [facility] 09/13/2022 11:04:18 Date Recorded Body temperature Provider Name a nd Address Organization Details Last Updated DateTime 09/13/2022 98 [degF] ZIYAD ARGUELLES PA - [facility] 09/13/2022 11:05:10 Date Recorded Oxygen saturation Oxygen saturation in Arterial blood by Pulse oximetry Provider Name and Address Organization Details Last Updated DateTime 09/13/2022 98 % 98 % ZIYAD BAUMKELLY PA - [facility] 09/13/2022 11:05:17 Date Recorded Heart rate Provider Name an d Address Organization Details Last Updated DateTime 09/13/2022 105 /min ZIYAD BAUMKELLY PA - [facility] 09/13/2022 11:05:27 Date Recorded Body mass index (BMI) Body weight Provider Name and Address Organization Details Last Updated DateTime 09/13/2022 30.9 kg/m2 23432.1 g ZIYAD BAUMKELLY PA - [facility] 09/13/2022 11:06:41 Date Recorded Systolic blood pressure Diastolic blood pressure Provider Name and Address Organization Details Last Updated DateTime 05/13/2022 116 mm[Hg] 76 mm[Hg] Tyrell Sherman PA - [facility] 05/13/2022 12:27:52 Date Recorded Systolic blood pressure Diastolic blood pressure Provider Name and Address Organization Details Last Updated DateTime 09/13/2022 124 mm[Hg] 78 mm[Hg] ZIYAD BAUMKELLY PA - [facility] 09/13/2022 11:05:31 Social History Question Answer Notes LastModified by Organizat ion Details LastModified Time Tobacco Smoking Status Never Smoker ZIYAD BAUMKELLY mcconnell PA - [facility] 09/13/2022 11:03:08 What Is Your Level Of Alcohol Consumption? None [email or web address] Information not available 09/13/2022 Do You Use Any Illicit Or Recreational Drugs? No Information not available 05/13/2022 Have You Recently Traveled Abroad? No Information not available 05/13/2022 Do You Or Have You Ever Used Any Other Forms Of Tobacco Or Nicotine? No Information not available 05/13/2022 Sex: Unknown Functional Status None recorded. Mental Status None recorded. Family History Relationship Description Onset Age of this Age Resolved Age Notes LastModified by Organization Details LastModified Time Father No current problems or disability Not available 05/13 12:31:56 Mother No current problems or disability Not available 05/13 12:31:56 Medical History No medical history recorded. Gynecological History Statement/Question Response Is there any chance of ? No LMP N/A Obstetrics History GPAL:G 0 P 0 0 0 0 Immunizations Vaccine Type Date Status Note Provider Nam e and Address Organization Details Recorded Time Influenza, MDCK, quadrivalent, PF 02/03/2022 completed ZIYAD ARGUELLES null, PA - [facility] 09/13/2022 10:59:48 COVID-19, mRNA, LNP-S, PF, 100 mcg/0.5mL dose or 50 mcg/0.25mL dose 04/19/[address] null, PA - [facility] 05/13/2022 12:28:22 COVID-19, mRNA, LNP-S, PF, 30 mcg/0.3 mL dose 03/25/[address] null, PA - [facility] 05/13/2022 12:28:22 COVID-19, mRNA, LNP-S, PF, 30 mcg/0.3 mL dose 04/15/[address] null, PA - [facility] 05/13/2022 12:28:22 Influenza, split virus, quadrivalent, PF 01/06/[address] null, PA - [facility] 05/13/2022 12:28:22 Past Encounters Encounter ID Performer Location Encounter Start Date Encounter Closed Date Diagnosis/Indication Diagnosis SNOMED-CT Code Diagnosis ICD10 Code Diagnosis Note [id number] [address] [place] [address] 12/28/2021 08:06:00 12/28/2021 09:38:47 [id number] [address] [place] [address] 09/23/2019 16:36:00 09/23/2019 18:54:15 [id number] [address] [place] [address] 05/04/2020 10:41:49 05/04/2020 12:34:41 [id number] Hima Bernardo NP [address] [place] [address] 05/13/2022 12:12:21 05/13/2022 13:21:12 Abdominal pain 37114630 R10.9 Viral screening 83817981 4 Z11.59 Acute urin grace tract infection 332944853 N39.0 [id number] Hima Bernardo, TOOL GRINDING TECHNICIAN [address] [facility] [address] [place] [address] 09/13/2022 10:38:32 09/13/2022 11:38:12 Otitis externa of left ear 6650679151 036341 H60.92 Health Concerns Section Related Observation LastModified by Organization Detai ls LastModified Time None Recorded Concern Status LastModified by Organization Details LastModified Time None Recorded Advance Directives Directive None Recorded Payers Encounter Date Sequence Insurance Name Policy Number Policy Tineo Covered Member ID Tineo Member ID Guarantor Name 09/23/2019 1 [facility] (MEDICARE REPLACEMENT PPO) [id number] Jeet [id number] Nicole Emanuel 05/04/2020 1 [facility] ([place]PLACEMENT PPO) [id number] Jeet [id number] Nicole Emanuel 12/28/2021 1 [facility] (MEDICARE [place]PLACEMENT PPO) [id number] Jeet [id number] Nicole Emanuel 05/13/2022 1 [facility]: MEDICARE PPO BLUE (MEDICARE REPLACEMENT PPO) [id number] Jeet [id number] Nicole Emanuel 09/13/2022 1 [facility] [id number] Nicole Emanuel [id number] Nicole Emanuel Notes Date Note Type Note Provider Name and Address Organization Details Recorded Time 3 text/html Abdominal PainReported bypatient.source of patient information; Patient arrived at Urgent Care ambulatory; learning styles: auditory Location:generalized; epigastric Quality:aching;dull Severity:pain level 6/10;mild Duration:cannot identify; constant Onset/Timing:worse; sudden Context:no travel Modifying Factors:nothing makes it worse Associated Symptoms:no fever; no chills; no diarrhea; no constipation; no blood in the urine; no heartburn; no shortness of breath; no change in bowel/bladder habits;nausea;vomiting Other:denies possible Hima Bernardo NP [address] [place], [phone], [email or web address] [facility] 05/13/2022 20:33:25 3 text/html Ear problem UCReported bypatient.source of patient informationInformation obtained from patient; Patient arrived at Urgent Care ambulatory; learning styles: auditory Location:left Quality:pain;decreased hearing Severity:moderate Duration:1 weeks Context:no sick contacts; no recent swimming/water in ear; no recent air travel;history of ear aches/ear infections Modifying Factors:does not hurt to chew;hurts to lie on, or pull on ear; often has wax accumulation Associated Symptoms:popping noise in the ears;tender to touch Hima Bernardo NP [address] [place], [phone], [place] [employer] [facility] 09/13/2022 11:35:46 OBGyn Episode No OBEpisode recorded.
--- OUTSIDE RECORDS SUMMARY | 2024-03-14 07:55 | XMS_ITS ---
Author Organization [facility] Address [address] [place] [address] Care Team Providers Care Air Traffic Control Equipment Repairer Name Role Phone TEVIN PELAEZ Primary Care Provider Declan Sims Jr [phone] REASON FOR VISIT crohn's symptoms/ fyi update MEDICATIONS Medication SIG (Take, Route, Fr equency, Duration) Notes Start Date End Date Status Skyrizi 360 MG/2.4ML Inject 1 Subcutaneo us every 8 weeks 10/13/2023 Active Encounters Encounter Location Date Provider Diagnosis [facility] [address] [place] [address] 10/13/2023 Declan Raphael Jr Crohn's disease of both small and large intestine with rectal bleeding K50.811 ASSESSMENTS Encounter Date Diagnosis Assessment Notes Treatment Notes Treatment Clinical Notes 10/13/2023 Crohn's disease of both small and large intestine with rectal bleeding (ICD-10 - K50.811) Labs to be done after third injection of higher dose Skyrizi PLAN OF TREATMENT Medication Medication Name Sig Start Date Stop Date Notes Skyrizi 360 MG/2.4ML Inject 1 Subcutaneous every 8 weeks 0 10/13/2023 Treatment Notes Assessment Notes Crohn's disease of both smal l and large intestine with rectal bleeding Labs to be done after third injection of higher dose Skyrizi Pending Test Test Name Order Date LIVER PROFILE 10/13/2023 CRP 10/13/2023 CBC with MANUAL DIFFERENTIAL 10/13/2023 SED RATE (ESR) 10/13/2023 PROMETHEUS ANSER UST 10/13/2023 Next Appt Details Provider Name:Declan castro Jr, 03/28/2024 09:40:00 AM, [address], [address], [place], [address],
[2024-03-14 08:11] LABS: MANUAL DIFF FLAG NO
[2024-03-14 08:53] LABS: Basophils Absolute Auto 0.1 X10*3/uL (0.0-0.2); Basophils Percent Auto 0.9 % (0-2); Eosinophils Absolute Auto 0.2 X10*3/uL (0.0-0.4); Eosinophils Percent Auto 2.5 % (0-4); Hemoglobin 13.7 g/dl (12.0-16.0); Imm Gran Abs Auto 0.02 X10*3/uL (0.00-0.03); Imm Gran Pct Auto 0.3 % (0.0-0.4); Lymphocytes Absolute Auto 1.5 X10*3/uL (1.2-4.9); Lymphocytes Percent Auto 22.4 % (20-40); Mean Corpuscular HGB Conc 32.6 g/dl (31.0-35.0); Mean Corpuscular Hemoglobin 29.1 pg (27.0-33.0); Mean Corpuscular Volume 89.2 fL (80.0-98.0); Mean Platelet Volume 8.6 fL (9.4-12.3); Monocytes Absolute Auto 0.4 X10*3/uL (0.1-1.2); Monocytes Percent Auto 6.5 % (2-11); Neutrophils Absolute Auto 4.5 x10*3/uL (2.0-8.3); Neutrophils Percent Auto 67.4 % (45-73); Platelet Count 293 X10*3/uL (160-400); Red Blood Count 4.71 X10*6/uL (4.20-5.50); Red Cell Distribution Width 13.4 % (11.0-16.0); White Blood Count 6.7 X10*3/uL (4.8-10.8)
[2024-03-14 09:29] LABS: Erythrocyte Sedimentation Rate 9 MM/HR (0-20)
[2024-03-14 10:01] LABS: Alanine Aminotransferase 16 U/L (0-31); Albumin Level 4.1 g/dL (3.5-5.0); Alkaline Phosphatase 130 U/L (39-117); Aspartate Amino Transferase 19 U/L (5-31); Bilirubin Direct 0.2 mg/dL (0.0-0.5); Bilirubin Total 0.5 mg/dL (0.0-1.0); C Reactive Protein 0.22 mg/dL (< or = 0.50); Total Protein 7.7 g/dL (6.5-8.0)
== END 2024-03-14 07:52 | disposition home or self-care (01) ==
LOC: HO.LAB 07:51
PROVIDERS: Visit Provider Internal Medicine Gastroenterology
DX: K50.811 Crohn's disease of both small and large intestine with rectal bleeding (principal)
CPT/HCPCS: 36415; 80076; 80299; 82542; 85025; 85652; 86140

== ENCOUNTER 2024-07-27 06:35 | Outpatient (REF) | payer OTHER, SELFPAY ==
[2024-07-27 07:25] LABS: Hematocrit 40.4 % (37.0-47.0); Hemoglobin 13.6 g/dl (12.0-16.0); Mean Corpuscular HGB Conc 33.7 g/dl (31.0-35.0); Mean Corpuscular Hemoglobin 30.4 pg (27.0-33.0); Mean Corpuscular Volume 90.4 fL (80.0-98.0); Mean Platelet Volume 8.9 fL (9.4-12.3); Platelet Count 240 X10*3/uL (160-400); Red Blood Count 4.47 X10*6/uL (4.20-5.50); Red Cell Distribution Width 13.1 % (11.0-16.0); White Blood Count 4.9 X10*3/uL (4.8-10.8)
[2024-07-27 08:04] LABS: Erythrocyte Sedimentation Rate 7 MM/HR (0-20)
[2024-07-27 08:09] LABS: Alanine Aminotransferase 12 U/L (0-31); Albumin Level 4.4 g/dL (3.5-5.0); Alkaline Phosphatase 86 U/L (39-117); Aspartate Amino Transferase 18 U/L (5-31); Bilirubin Direct 0.2 mg/dL (0.0-0.5); Bilirubin Total 0.4 mg/dL (0.0-1.0); C Reactive Protein 0.95 mg/dL (< or = 0.50); Total Protein 7.3 g/dL (6.5-8.0)
[2024-07-28 14:08] LABS: Mitochondrial Antibodies NEGATIVE (NEGATIVE)
[2024-08-04 04:09] LABS: FIB-ALT 10 U/L (6-29); FIB-Alpha-2-Macroglobulin 192 mg/dL (106-279); FIB-Apolipoprotein A1 134 mg/dL (101-198); FIB-GGT 10 U/L (3-40); FIB-Haptoglobin 133 mg/dL (43-212); FIB-Total Bilirubin 0.3 mg/dL (0.2-1.2); Liver Fibrosis Score 0.05; Liver Fibrosis Stage F0; Nec Inflam Act Grade A0; Nec Inflam Act Score 0.02
== END 2024-07-27 06:36 | disposition home or self-care (01) ==
LOC: HO.LAB 06:35
PROVIDERS: PCP Internal Medicine Sports Medicine; Visit Provider Internal Medicine Gastroenterology
DX: K50.811 Crohn's disease of both small and large intestine with rectal bleeding (principal)
CPT/HCPCS: 36415; 80076; 81596; 85027; 85652; 86140; 86381

== ENCOUNTER 2024-08-26 10:24 | Outpatient (REF) | payer OTHER, SELFPAY ==
--- OUTSIDE RECORDS SUMMARY | 2024-08-26 10:56 | XMS_ITS | Patient Health Record ---
Author Organization [facility] Address [address] [place] [address] Care Team Providers Care Records Analysis Manager Name Role Phone TEVIN PELAEZ Primary Care Provider Declan Sims Jr Unavailable [phone] Allergies Allergen (clinical drug ingredient) Drug/Non Drug Allergy [...] Sulfa Antibiotics Unknown Drug Allergy A ctive Results Component Value Reference Range Notes Complete Blood Count Auto Di ff Reviewed date:03/16/2024 08:28:05 AM Interpretation: Performing Lab:[facility], [address] [place] [phone] Notes/Report: White Blood Count 6.7 4.8-10.8 X10*3/uL Red Blood Count 4.71 4.20-5.50 X10*6/uL Hemoglobin 13.7 12.0-16.0 g/dl Hematocrit 42.0 37.0-47.0 % Mean Corpuscular Volume 89.2 80.0-98.0 fL Mean Corpuscular Hemoglobin 29.1 27.0-33.0 pg Mean Corpuscular HGB Conc 32.6 31.0-35.0 g/dl Red Cell Distribution Width 13.4 11.0-16.0 % Platelet Count 293 160-400 X10*3/uL Mean Platelet Volume 8.6 9.4-12.3 fL Neutrophils Percent Auto 67.4 45-73 % Imm Gran Pct Auto 0.3 0.0-0.4 % Lymphocytes Percent Auto 22.4 20-40 % Monocytes Percent Auto 6.5 2-11 % Eosinophils Percent Auto 2.5 0-4 % Basophils Percent Auto 0.9 0-2 % NRBC Pct Auto 0.0 0.0-0.2 /100WBC Neutrophils Absolute Auto 4.5 2.0-8.3 x10*3/u L Imm Gran Abs Auto 0.02 0.00-0.03 X10*3/uL Lymphocytes Absolute Auto 1.5 1.2-4.9 X10*3/u L Monocytes Absolute Auto 0.4 0.1-1.2 X10*3/uL Eosinophils Absolute Auto 0.2 0.0-0.4 X10*3/u L Basophils Absolute Auto 0.1 0.0-0.2 X10*3/uL NRBC Abs Auto 0.000 0.0-0.012 X10*3/uL Erythrocyte Sedimentation Ra te Reviewed date:03/16/2024 08:27:51 AM Interpretation: Performing Lab:[facility], [address] [place] [phone] Notes/Report: Erythrocyte Sedimentation Rate 9 0-20 MM/HR Patients with polycythemia and many hemoglobin abnormalities may have depressed sed rates whereas patients with anemia may have elevated sed rates. Liver Panel Reviewed date:03/16/2024 08:27:45 AM Interpretation: Performing Lab:[address] [phone] Notes/Report: Bilirubin Total 0.5 0.0-1.0 mg/dL Bilirubin Direct 0.2 0.0-0.5 mg/dL Aspartate Amino Transferase 19 5-31 U/L Alanine Aminotransferase 16 0-31 U/L Total Protein 7.7 6.5-8.0 g/dL Albumin Level 4.1 3.5-5.0 g/dL Alkaline Phosphatase 130 39-117 U/L C Reactive Protein Reviewed date:03/16/2024 08:27:58 AM Interpretation: Performing Lab:[address] [phone] Notes/Report: C Reactive Protein 0.22 < or = 0.50 mg/dL Nereida Mckeon UST Reviewed date:03/22/2024 04:50:48 PM Interpretation: Performing Lab:[address] [address] Notes/Report: Nereida Mckeon UST SEE NOTE SEE SCA NNED RESULTS IN EMR Complete Blood Count no Diff Reviewed date:07/28/2024 11:02:46 AM Interpretation: Performing Lab:[address] [phone] Notes/Report: White Blood Count 4.9 4.8-10.8 X10*3/uL Red Blood Count 4.47 4.20-5.50 X10*6/uL Hemoglobin 13.6 12.0-16.0 g/dl Hematocrit 40.4 37.0-47.0 % Mean Corpuscular Volume 90.4 80.0-98.0 fL Mean Corpuscular Hemoglobin 30.4 27.0-33.0 pg Mean Corpuscular HGB Conc 33.7 31.0-35.0 g/dl Red Cell Distribution Width 13.1 11.0-16.0 % Platelet Count 240 160-400 X10*3/uL Mean Platelet Volume 8.9 9.4-12.3 fL NRBC Pct Auto 0.0 0.0-0.2 /100WBC NRBC Abs Auto 0.000 0.0-0.012 X10*3/uL Erythrocyte Sedimentation Ra te Reviewed date:07/28/2024 11:02:31 AM Interpretation: Performing Lab:[address] [address] Notes/Report: Erythrocyte Sedimentation Rate 7 0-20 MM/HR Patients with polycythemia and many hemoglobin abnormalities may have depressed sed rates whereas patients with anemia may have elevated sed rates. Liver Panel Reviewed date:07/28/2024 11:02:19 AM Interpretation: Performing Lab:[address] [address] Notes/Report: Bilirubin Total 0.4 0.0-1.0 mg/dL Bilirubin Direct 0.2 0.0-0.5 mg/dL Aspartate Amino Transferase 18 5-31 U/L Alanine Aminotransferase 12 0-31 U/L Total Protein 7.3 6.5-8.0 g/dL Albumin Level 4.4 3.5-5.0 g/dL Alkaline Phosphatase 86 39-117 U/L C Reactive Protein Reviewed date:07/28/2024 11:02:07 AM Interpretation: Performing Lab:[facility], [address] [place] [phone] Notes/Report: C Reactive Protein 0.95 < or = 0.50 mg/dL Liver Fibrosis Pnl Reviewed date:08/05/2024 03:52:52 PM Interpretation: Performing Lab:[facility], [address] [place] [phone] Notes/Report: Liver Fibrosis Score 0.05 Liver Fibrosis Stage F0 Liver Fibrosis Interpretation SEE NOTE no fibrosis Fibro Test Score (f) Metavir Score f>=0 and f<=0.21 : F0 (no fibrosis) f>0.21 and f<=0.27 : F0-F1 (no fibrosis) f>0.27 and f<=0.31 : F1 (minimal fibrosis) f>0.31 and f<=0.48 : F1-F2 (minimal fibrosis) f>0.48 and f<=0.58 : F2 (moderate fibrosis) f>0.58 and f<=0.72 : F3 (advanced fibrosis) f>0.72 and f<=0.74 : F3-F4 (advanced fibrosis) f>0.74 and f<=1.00 : F4 (severe fibrosis) Nec Inflam Act Score 0.02 Nec Inflam Act Grade A0 Nec Inflam Act Interpretation SEE NOTE no activity ActiTest Score (a) Metavir Score a>=0 and a<=0.17 : A0 (no activity) a>0.17 and a<=0.29 : A0-A1 (no activity) a>0.29 and a<=0.36 : A1 (minimal activity) a>0.36 and a<=0.52 : A1-A2 (minimal activity) a>0.52 and a<=0.60 : A2 (significant activity) a>0.60 and a<=0.62 : A2-A3 (significant activity) a>0.62 and a<=1.00 : A3 (severe activity) DGA-Ruzay-4-Macroglobulin 192 106-279 mg/dL FIB-Haptoglobin 133 43-212 mg/dL FIB-Apolipoprotein A1 134 101-198 mg/dL FIB-Total Bilirubin 0.3 0.2-1.2 mg/dL FIB-GGT 10 3-40 U/L FIB-ALT 10 6-29 U/L Reference ID [id number] Footnote SEE NOTE The reliability of results is dependent on compliance with the preanalytical and analytical conditions recommended by [employer]. The tests have to be deferred for: acute hemolysis, acute hepatitis, acute inflammation, extra hepatic cholestasis. The advice of a specialist should be sought for interpretation in chronic hemolysis and Gilbert's syndrome. The test interpretation is not validated in liver transplant patients. Isolated extreme values of one of the components should lead to caution in interpreting the results. In case of discordance between a biopsy result and a test, it is recommended to seek the advice of a specialist. The causes of these discordances could be due to a flaw of the test or to a flaw in the biopsy: i.e. a liver biopsy has a 33% variability rate for one fibrosis stage. FibroTest is interpretable for chronic hepatitis B and C, alcoholic and non alcoholic steatosis. ActiTest is interpretable for chronic hepatitis B and C. The performance characteristics have been determined by [facility]. It has not been cleared or approved by the U.S. Food and Drug Administration. Performance characteristics refer to the analytical performance of the test. [employer], the associated logo, [employer] and all associated [employer] boo are the registered trademarks of [employer]. All third republican boo - (R) and (TM) - are the property of their respective owners. (C) [id number] [employer]. All rights reserved. THIS TEST WAS PERFORMED AT: [facility] [facility] [place] [address] [place] [address] KAVITA PEREZ MD,PHD,DAVID Mitochondrial Antibody Reviewed date:08/02/2024 04:12:46 PM Interpretation: Performing Lab:[facility], [address] [place] [phone] Notes/Report: Mitochondrial Antibodies NEGATIVE NEGATIVE THIS TEST WAS PERFORMED AT: [facility] [address] [address] GIULIANO VIDAL MD Mitochondrial Ab Titer TNP Reason For Referral No Information Medications Medication SIG (Take, Route, Frequency, Duration) Notes Start Date End Date Status LORazepam 0.5 MG 1 tablet at bedtime as needed Orally Once a day Active Cetirizine HCl 10 MG 1 tablet Orally Onc e a day for 30 day(s) Active Skyrizi 150 MG/ML 1 mL Subcutaneous fo r 30 day(s) Active Prednisone 1 tab Oral for 14 days Active Skyrizi 360 MG/2.4ML Inject 1 Subcutaneo us every 8 weeks 10/13/2023 Active Pantoprazole Sodium 40 MG Oral for 30 Active Citalopram Hydrobromide 10 MG TAKE 1/2 TABLET BY MOUTH DAILY FOR 1 WEEK THEN INCREASE TO 1 TABLET DAILY Oral for 90 Active Norethindrone 0.35 MG Oral for 84 Active Immunizations Vaccine Route Administration Date Status Comme nts Influenza Unknown 12/03/2021 Administered Influenza Unknown 12/09/2022 Administered Influenza Unknown 12/08/2023 Administered Social History Tobacco Use: Social History Observation Description Date Details (start date - stop date) Never Smoker NA - NA Tobacco Use/Smoking Question Answer Notes Patient is a nonsmoker Alcohol Screen Question Answer Notes Did you have a drink containing alcohol in the p ast year? No Points 0 Interpretation Negative Problems Problem Type SNOMED Code ICD Code Onset Dates Problem Status W/U Status Risk Notes Problem Crohn''s disease of both small and large intestine with rectal bleeding (K50.811) Active confirmed Problem [id number] Alkaline phosphatase elevation (R74.8) Active confirmed Vital Signs Temperature 97.8 degrees Fahrenheit 03/28/2024 Blood pressure diastolic 00 mm Hg 03/28/2024 Height 65 in 03/28/2024 Blood pressure systolic 000 mm Hg 03/28/2024 Weight 188 lb 4 oz lbs 03/28/2024 BMI 31.32 kg/m2 03/28/2024 Encounters Encounter Location Date Provider Diagnosis [facility] [address] [place] [phone] 03/28/2024 Declan Raphael Jr Crohn's disease of both small and large intestine with rectal bleeding K50.811 and Alkaline phosphatase elevation R74.8 [facility] [address] [place] [address] 10/13/2023 Declan Raphael Jr Crohn's disease of both small and large intestine with rectal bleeding K50.811 [facility] [address] [place] [address] 03/22/2024 Declan Raphael Jr [facility] [address] [place] [address] 07/01/2024 Declan Raphael Jr Crohn''s disease of both small and large intestine with rectal bleeding K50.811 [facility] [address] [place] [address] 08/05/2024 Declanjuliana Raphael Jr Assessments Encounter Date Diagnosis (ICD Code) Assessment Notes Treatment Notes Treatment Clinical Notes Section Notes 03/28/2024 Crohn's disease of both small and large intestine with rectal bleeding (ICD-10 - K50.811) Crohn disease material was printed At this time, she is doing well. She will continue treatment with skyrizi. We recommended repeating laboratory tests in July or August and monitoring her alkaline phosphatase. She asked about taking an qdum-xjd-ikuica r supplements for immune system health, which we don't think is a problem. Because of the way skyrizi targets inflammation, it seems unlikely that her autoimmune conditions will be exacerbated by this. Followup in 12 months. 03/28/2024 Alkaline phosphatase elevation (ICD-10 - R74.8) At this time, she is doing well. She will continue treatment with skyrizi. We recommended repeating laboratory tests in July or August and monitoring her alkaline phosphatase. She asked about taking an sbrk-det-gltsme r supplements for immune system health, which we don't think is a problem. Because of the way skyrizi targets inflammation, it seems unlikely that her autoimmune conditions will be exacerbated by this. Followup in 12 months. 10/13/2023 Crohn's disease of both small and large intestine with rectal bleeding (ICD-10 - K50.811) Labs to be done after third injection of higher dose Skyrizi 07/01/2024 Crohn''s disease of both small and large intestine with rectal bleeding (ICD-10 - K50.811) k Plan Of Treatment Pending Test Test Name Order Date LIVER PROFILE 11/06/2022 LIVER PROFILE 08/29/2022 LIVER PROFILE 07/08/2023 LIVER PROFILE 04/28/2022 LIVER PROFILE 03/28/2024 LIVER PROFILE 10/13/2023 LIVER PROFILE 06/05/2022 LIPASE 11/06/2022 LIPASE 08/29/2022 LIPASE 07/08/2023 LIPASE 04/28/2022 LIPASE 06/05/2022 CRP 06/05/2022 CRP 03/28/2024 CRP 11/06/2022 CRP 08/29/2022 CRP 07/08/2023 CRP 10/13/2023 CBC w DIFF 06/05/2022 CBC w DIFF 08/29/2022 CBC w DIFF 07/08/2023 CBC with MANUAL DIFFERENTIAL 10/13/2023 CBC w/o DIFF 04/28/2022 CBC w/o DIFF 03/28/2024 CBC w/o DIFF 11/06/2022 SED RATE (ESR) 11/06/2022 SED RATE (ESR) 08/29/2022 SED RATE (ESR) 07/08/2023 SED RATE (ESR) 10/13/2023 SED RATE (ESR) 06/05/2022 SED RATE (ESR) 03/28/2024 MITOCHONDRIAL AB 03/28/2024 US ABD 07/03/2022 PROMETHEUS ANSER UST 10/13/2023 [employer] Monitr Crohn's 07/01/2024 Liver Fibrosis Pnl 03/28/2024 T Spot TB 08/29/2022 Thiopurine Metabolites 06/05/2022 Thiopurine Metabolites 04/28/2022 Next Appt Details Provider Name:Declan castro , 04/03/2025 09:00:00 AM, [address], [address], [place], [address], Insurance Providers Payer Name Payer Address Payer Phone Subscriber Number Group Number Insured Name Patient Relationship to Insured Coverage Start Date Coverage End Date [facility] [address] [place] [phone] [id number] ANGELES ONOFRE Self - patient is the insured Medical (General) History Medical History History ICD Code Crohn's disease [...] Brain aneurysm Surgical History Surgery Date(Month/Year) appendectomy 2008 Knee surgery x2 2017 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
--- OUTSIDE RECORDS SUMMARY | 2024-08-26 10:56 | XMS_ITS | Data Portability ---
Author Organization MALENA Rios s, [address] Address [address] [place] [address] Care Team Providers Care Heating Element Builder Name Role Phone RHODA GILLIAM Primary Care Provider Assessment No assessment recorded. Plan of Treatment Reminders Order Date Submit Date Provider Last Modified By Organization Details Last Modified Time Details Appointments None recorded. Lab rapid flu (A+B) 2022 023 isidra3 [facility], [address] [place], [address], 3 13:11:16 urinalysis, dipstick 2022 023 [facility] 2099[facility], [address] [place], [address], 3 13:11:16 test, urine 2022 023 formerly [facility] [address] [place] [address] [address], [address] [place], [address], 3 13:11:16 culture, urine 2022 023 [place] [facility] ([facility], [address] [place] [address], [place], [address], 3 06:07:32 Referral emergency medicine referral - Abdominal pain with multiple complaints, including crohn's disease UTI and pyleonephri tis? Need further evaluation and treatment , diffuse abdominal pain. Complex medical history. 2022 023 [email or web address] a1 [facility], [address] [place], [address], 13:21:12 Procedures None recorded. Surgeries None recorded. Imaging None recorded. Medication Orders ofloxacin 0.3 % ear drops 2022 023 [id number], [address] [place], [address], 11:32:16 Macrobid 100 mg capsule 2022 023 [id number], [address] [place], [address], 11:01:41 Patient TargetsNo targets recorded. Patient Instructions Encounter Date Encounter Id Patient Instructions Last Modified By Organization Details Last Modified Time 05/13/2022 [id number] Abdominal pain c an have a wide [...] concerns you. Not available 05/13/2022 13:05:38 09/13/2022 [id number] Water in the ear , from swimming [...] deeper into the ear canal. Remain still, ecpf-zhc-dnqx-down for about 15 minutes. 3. Keep the [...] about six inches from the ear. 4. Lmsq-nmc-pdjbygo pain medications can relieve discomfort associated with external otitis. Acetaminophen (Tylenol), ibuprofen, or naproxen can be taken, depending on individual preference. 5. Return to the [facility] in about one week. The provider [...] Abnormal Flag Note LastModifiedBy Organization Detail LastModifiedTime 05/14/19 23 05/15/2022 URINE CULTU RE, ROUTI NE urine culture, routine FINAL REPORT Not Available [facility] ([facility]) [address] [place], [address], 05/15/2022 06:07:32 05/14/19 23 05/15/2022 URINE CULTU RE, ROUTI NE result 1 COMMEN T Cultu re shows less than 10,00 0 colon y formi ng units of bacte alton per doc liter of urine . This colon y count is not gener ally consi dered to be clini felicitas signi fican t. Not Available [facility] ([facility]) [address] [place], [address], 05/15/2022 06:07:32 05/14/19 23 05/13/2022 rapid flu (A+B) Unknown Analyte Normal = Negati ve Not Available [address] [place], [address], 05/13/2022 12:35:31 05/14/19 23 05/13/2022 rapid flu (A+B) Unknown Analyte negati ve Not Available [address] [place], [address], 05/13/2022 12:35:31 05/14/19 23 05/13/2022 rapid flu (A+B) Unknown Analyte Normal = Negati ve Not Available [address] [place], [address], 05/13/2022 12:35:31 05/14/19 23 05/13/2022 rapid flu (A+B) Unknown Analyte negati ve Not Available [address] [place], [address], 05/13/2022 12:35:31 05/14/19 23 05/13/2022 pregn brooke test, urine Unknown Analyte Normal = Negati ve Not Available [address] [place], [address], 05/13/2022 12:32:10 05/14/19 23 05/13/2022 pregn brooke test, urine Unknown Analyte negati ve Not Available [address] [place], [address], 05/13/2022 12:32:10 05/14/19 23 05/13/2022 urina lysis , dipst ick Unknown Analyte Normal = light yellow Not Available [address] [place], [address], 05/13/2022 12:31:57 05/14/19 23 05/13/2022 urina lysis , dipst ick Unknown Analyte Yellow Not Available [address] [place] [address] [address] [place], [address], 05/13/2022 12:31:57 05/14/19 23 05/13/2022 urina lysis , dipst ick Unknown Analyte Normal = clear Not Available [address] [place], [address], 05/13/2022 12:31:57 05/14/19 23 05/13/2022 urina lysis , dipst ick Unknown Analyte Slight ly Cloudy Not Available [address] [place], [address], 05/13/2022 12:31:57 05/14/19 23 05/13/2022 urina lysis , dipst ick Unknown Analyte Normal = negati ve Not Available [address] [place], [address], 05/13/2022 12:31:57 05/14/19 23 05/13/2022 urina lysis , dipst ick Unknown Analyte Negati ve Not Available [facility] [address] [place], [address], 05/13/2022 12:31:57 05/14/19 23 05/13/2022 urina lysis , dipst ick Unknown Analyte Normal = Negati ve Not Available [facility] [address] [place], [address], 05/13/2022 12:31:57 05/14/1905/13/2022 urina lysis , dipst ick Unknown Analyte Negati ve Not Available [facility] [address] [place], [address], 05/13/2022 12:31:57 05/14/19 23 05/13/2022 urina lysis , dipst ick Unknown Analyte Normal = Negati ve Not Available [facility] [address] [place], [address], 05/13/2022 12:31:57 05/14/19 23 05/13/2022 urina lysis , dipst ick Unknown Analyte Trace Not Available [address] [place] [address] [address] [place], [address], 05/13/2022 12:31:57 05/14/19 23 05/13/2022 urina lysis , dipst ick Unknown Analyte Normal = 1.010, 1.015, 1.020 Not Available [facility] [address] [place], [address], 05/13/2022 12:31:57 05/14/19 23 05/13/2022 urina lysis , dipst ick Unknown Analyte 1.020 Not Available [address] [place] [address] [address] [place], [address], 05/13/2022 12:31:57 05/14/19 23 05/13/2022 urina lysis , dipst ick Unknown Analyte Normal = Negati ve Not Available [facility] [address] [place], [address], 05/13/2022 12:31:57 05/14/19 23 05/13/2022 urina lysis , dipst ick Unknown Analyte Large Not Available 2099 [facility] [address] [place], [address], 05/13/2022 12:31:57 05/14/19 23 05/13/2022 urina lysis , dipst ick Unknown Analyte Normal = 6.5, 7.0, 7.5, 8.0 Not Available [facility] [address] [place], [address], 05/13/2022 12:31:57 05/14/19 23 05/13/2022 urina lysis , dipst ick Unknown Analyte 6.0 Not Available 2099 [facility] [address] [place], [address], 05/13/2022 12:31:57 05/14/19 23 05/13/2022 urina lysis , dipst ick Unknown Analyte Normal = Negati ve Not Available [facility] [address] [place], [address], 05/13/2022 12:31:57 05/14/19 23 05/13/2022 urina lysis , dipst ick Unknown Analyte 100 mg/dL Not Available [facility] [address] [place], [address], 05/13/2022 12:31:57 05/14/19 23 05/13/2022 urina lysis , dipst ick Unknown Analyte Normal = 0.2, 1.0 Not Available [address] [place], [address], 05/13/2022 12:31:57 05/14/19 23 05/13/2022 urina lysis , dipst ick Unknown Analyte 1.0 E.U./d L Not Available [facility] [address] [place], [address], 05/13/2022 12:31:57 05/14/1905/13/2022 urina lysis , dipst ick Unknown Analyte Normal = Negati ve Not Available [facility] [address] [place], [address], 05/13/2022 12:31:57 05/14/1905/13/2022 urina lysis , dipst ick Unknown Analyte Negati ve Not Available [facility] [address] [place], [address], 05/13/2022 12:31:57 05/14/1905/13/2022 urina lysis , dipst ick Unknown Analyte Normal = Negati ve Not Available [facility] [address] [place], [address], 05/13/2022 12:31:57 05/14/1905/13/2022 urina lysis , dipst ick Unknown Analyte Trace Not Available 2099 [facility] [address] [place], [address], 05/13/2022 12:31:57 Result Notes None recorded. Problems Name Problem SNOMED Code Status Onset Date Resolution Date Notes Provider Name and Address Organization Details Recorded Time Intracranial aneurysm 504103155 Active 2022 MALENA Hunter - [facility] 11:02:36 Crohn's disease 91176874 Active Tyrell mcconnell, PA - [facility] 3 12:31:38 Acid reflux 766408142 Active Tyrell mcconnell, PA - [facility] [...] Name and Address Organization Details Recorded Time 017682 Bactrim medicatio n rash Not available Not available 05/13/2022 24782 9 RxNorm Tyrell mcconnell, PA - [facility] 3 12:28:32 464159 Flagyl medicatio n rash Not available Not available 05/13/202251354 6 RxNorm Tyrell mcconnell, PA - [facility] 3 12:28:42 799039 Keflex medicatio n rash Not available Not available 05/13/2022 22319 7 RxNorm Tyrell mcconnell, PA - [facility] 3 12:28:52 450791 Substance with sulfonami de structure and antibacte rial mechanism of action (substanc e) medicatio n rash Not available Not available 05/13/2022 99143 8003 SNOMED Tyrell mcconnell, PA - [facility] 3 12:29:01 127034 amoxicill in medicatio n rash Not available Not available 05/13/2022 723 RxNorm Tyrell mcconnell, PA - [facility] 3 12:29:06 447401 doxycycli ne Not available rash Not available [...] completed Not Available Not Available Not Available Macrobid 100 mg capsule Take 1 capsule every 12 hours by oral route with meals for 7 days. 09/13 completed Not Available Not Available Not [...] Not Available Vitals Date Recorded Body height Body mass index (BMI) Body weight Oxygen saturation Oxygen saturation in Arterial blood by Pulse oximetry Heart rate Respiratory rate Body temperature Systolic And Diastolic Provider Name and Address Organization Details Last Updated DateTime 3 165.1 cm 30.8 kg/m2 50718.5 9 g 97 % 97 % 109 /min 18 /min 97.9 [degF] 116/76 mm[Hg] Tyrell Sherman PA - [facility] 3 12:27:52 Date Recorded Body height Respiratory rate Body temperature Oxygen saturation Oxygen saturation in Arterial blood by Pulse oximetry Heart rate Body mass index (BMI) Body weight Systolic And Diastolic Provider Name and Address Organization Details Last Updated DateTime 3 169.55 cm 16 /min 98 [degF] 98 % 98 % 105 /min 30.9 kg/m2 81439.1 g 124/78 mm[Hg] ZIYAD ARGUELLES PA - [facility] 3 11:05:31 Social History Question Answer Notes LastModified by [employer] Details LastModified Time Tobacco Smoking Status Never Smoker ZIYAD mcconnell PA - [facility] 09/13/2022 11:03:08 Have You Recently Traveled Abroad? No Information not available 05/13/2022 Sex: Unknown Functional Status Question Answer Note LastModified by [employer]izat [employer] Details LastModified Time Do you use any illicit or recreational drugs? No Information not available 05/13/2022 Do you or have you ever used any other forms of tobacco or nicotine? No Information not available 05/13/2022 What is your level of alcohol consumption? None [email or web address] Information not available 09/13/2022 Mental Status None recorded. Family History Relationship [...] Influenza, MDCK, quadrivalent, PF 02/03/2022 completed ZIYAD mcconnell PA - [facility] 09/13/2022 10:59:48 COVID-19, mRNA, LNP-S, PF, 100 mcg/0.5mL dose or 50 mcg/0.25mL dose 04/19/2021 completed Tyrell Sherman null, PA - [facility] 05/13/2022 12:28:22 COVID-19, mRNA, LNP-S, PF, 30 mcg/0.3 mL dose 03/25/2020 completed Tyrell Sherman null, PA - [facility] 05/13/2022 12:28:22 COVID-19, mRNA, LNP-S, PF, 30 mcg/0.3 mL dose 04/15/2020 completed Tyrell Sherman null, PA - [facility] 05/13/2022 12:28:22 Influenza, split virus, quadrivalent, PF 01/06/2020 completed Tyrell Sherman null, PA - [facility] 05/13/2022 12:28:22 Past Encounters Encounter ID Performer Location Encounter Start Date Encounter Closed Date Diagnosis/Indication Diagnosis SNOMED-CT Code Diagnosis ICD10 Code Diagnosis Note [id number] [address] [place] [address] 12/28/2021 08:06:00 12/28/2021 09:38:47 [id number] [address] [place] [address] 09/23/2019 16:36:00 09/23/2019 18:54:15 [id number] [address] [facility] [place] [address] 05/04/2020 10:41:49 05/04/2020 12:34:41 [id number] Hima Bernardo, PROGRAM DEVELOPMENT SPECIALIST [address] [place] [address] 05/13/2022 12:12:21 05/13/2022 13:21:12 Abdominal pain 20854649 R10.9 Viral screening 86025902 4 Z11.59 Acute urin grace tract infection 132313904 N39.0 [id number] Hima Bernardo, PROGRAM DEVELOPMENT SPECIALIST [address] [facility] [place] [address] 09/13/2022 10:38:32 09/13/2022 11:38:12 Otitis externa of left ear 8785778171 844647 H60.92 Health Concerns Section Related Observation LastModified by Organization Detai ls LastModified Time None Recorded Concern Status LastModified by Organization Details LastModified Time None Recorded Advance Directives Directive None Recorded Payers Insurance Date Sequence Insurance Name Policy Number Policy Tineo Covered Member ID Tineo Member ID Guarantor Name 09/13/2022 1 [facility] [id number] Nicole Emanuel [id number] Nicole Emanuel 09/13/2022 1 [facility]: MEDICARE PPO BLUE (MEDICARE REPLACEMENT PPO) [id number] Jeet Emanuel [id number] Nicole Emanuel Notes Date Note Type Note [...] habits;nausea;vomiting Other:denies possible Hima Bernardo NP [address] [facility] [place], [address], [place] - [facility] 05/13/2022 20:33:25 3 text/html Ear problem [...] ears;tender to touch Hima Bernardo NP [address] [place], [address], PA - [facility] 09/13/2022 11:35:46 OBGyn Episode No OBEpisode recorded.
[2024-08-26 11:51] LABS: Hematocrit 43.7 % (37.0-47.0); Hemoglobin 15.0 g/dl (12.0-16.0); Mean Corpuscular HGB Conc 34.3 g/dl (31.0-35.0); Mean Corpuscular Hemoglobin 30.8 pg (27.0-33.0); Mean Corpuscular Volume 89.7 fL (80.0-98.0); NRBC Abs Auto 0.000 X10*3/uL (0.0-0.012); NRBC Pct Auto 0.0 /100WBC (0.0-0.2); Platelet Count 286 X10*3/uL (160-400); Red Blood Count 4.87 X10*6/uL (4.20-5.50); White Blood Count 5.8 X10*3/uL (4.8-10.8)
[2024-08-26 12:34] LABS: Alanine Aminotransferase 15 U/L (0-31); Albumin Level 4.6 g/dL (3.5-5.0); Alkaline Phosphatase 102 U/L (39-117); Aspartate Amino Transferase 16 U/L (5-31); Total Protein 7.9 g/dL (6.5-8.0)
[2024-09-03 22:03] LABS: FIB-ALT 11 U/L (6-29); FIB-Alpha-2-Macroglobulin 194 mg/dL (106-279); FIB-Apolipoprotein A1 164 mg/dL (101-198); FIB-GGT 12 U/L (3-40); FIB-Haptoglobin 179 mg/dL (43-212); FIB-Total Bilirubin 0.4 mg/dL (0.2-1.2); Liver Fibrosis Score 0.04; Liver Fibrosis Stage F0; Nec Inflam Act Grade A0; Nec Inflam Act Score 0.02
== END 2024-08-26 10:25 | disposition home or self-care (01) ==
LOC: HO.LAB 10:24
PROVIDERS: PCP Internal Medicine Sports Medicine; Visit Provider Internal Medicine Gastroenterology
DX: K50.811 Crohn's disease of both small and large intestine with rectal bleeding (principal)
CPT/HCPCS: 36415; 80076; 80299; 81596; 82397; 82542; 83520; 85027; 85652; 86140; 86141; 86381

== ENCOUNTER 2024-10-20 06:57 | Outpatient (REF) | payer OTHER, SELFPAY ==
--- OUTSIDE RECORDS SUMMARY | 2024-01-06 05:40 | XMS_ITS ---
Author Organization [facility] Address [address] [facility] [address] [place] [address] Care Team Providers Care Carver And Checkerer Specials Name Role Phone TEVIN PELAEZ Primary Care Provider Declan Sims Jr [phone] REASON FOR VISIT crohn's Encounters Encounter Location Date Provider Diagnosis [facility] [address] [facility] [address] [place] [address] 01/06/2024 Declan Raphael Jr Plan Of Treatment Next Appt Details Provider Name:Declan castro Jr, 04/03/2025 09:00:00 AM, [address] [facility], [address], [place], [address], Progress Notes * ANGELES ONOFREDOB: [birth year] (29 yo F)Acc No.[id number]:01/06/2024 Progress Notes Patient: ANGELES GOMEZ Provider: Sharron Raphael MD :1995 A ge:28 Y S ex:Female Date:01/06/2024 Address:[address] [place] [address] [id number] Pcp:TEVIN PELAEZ Subjective: * Chief Complaints: * 1 . Crohn's. * Medical History: Objective: * Vitals: Assessment: Plan: * Treatment: * * The named appointment provid er may or may not be the originator of this progress note, and it is not deemed complete until electronically signed by the appointment provider. Sign off status: Pending * Provider: Sharron Raphael MD Date: 1 03/07/2023 Generated for Brigid trotter/Mouna/Corin on: 0 10/20/2024 07:00 AM EDT
--- OUTSIDE RECORDS SUMMARY | 2024-10-19 05:35 | XMS_ITS ---
Author Organization [facility] Address [address] [facility] [address] [place] [address] Care Team Providers Care Can Reconditioner Name Role Phone TEVIN PELAEZ Primary Care Provider Declan Sims Jr REASON FOR VISIT labs Encounters Encounter Location Date Provider Diagnosis [facility] [address] [place] [address] [place] [address] 10/19/2024 Declan Raphael Jr Crohn''s disease of both small and large intestine with rectal bleeding K50.811 Assessments Encounter Date Diagnosis (ICD Code) Assessment Notes Treatment Notes Treatment Clinical Notes Section Notes 10/19/2024 Crohn''s disease of both small and large intestine with rectal bleeding (ICD-10 - K50.811) Plan Of Treatment Pending Test Test Name Order Date LIVER PROFILE 10/19/2024 LIPASE 10/19/2024 CBC w DIFF 10/19/2024 Next Appt Details Provider Name:Declan castro Jr, 04/03/2025 09:00:00 AM, [address] [place] [address], [address], [place], [address], Progress Notes * ANGELES ONOFREDOB: [birth year] (29 yo F)Acc No.[id number]:10/19/2024 Patient: Tariq TIDWELL ANGELES :1995 A ge:29 Y S ex:Female Address:[address] [place] [address] [place], [address] Subjective: * Chief Complaints: * L abs * Medical History: * Surgical History: * Hospitalization/Major Diagno stic Procedure: * Medications: Objective: * Vitals: * Physical Examination: Assessment: * Assessment: 1. C rohn''s disease of both small and large intestine with rectal bleeding - K50.811 (Primary)? Plan: * Treatment: * Procedure Codes: * true * Date: Generated for Brigid trotter/Mouna/Tomeritting on: 0 10/20/2024 07:01 AM EDT
--- OUTSIDE RECORDS SUMMARY | 2024-10-20 07:00 | XMS_ITS | Encounter Summary ---
Author Organization [facility] Address [address] [facility] [address] [place] [address] Phone Care Team Providers Care Fire Lieutenant Marine Name Role Phone David Quinn MD Unavailable [phone] Unknown, Unknown Primary Care Provider Debbie pradhan Encounter Details Date Type Department Care Team (Late st Contact Info) Description 08/11/2021 Procedure Pass [facility], Ct Scan - [facility] [address] [place] [address] Social History Tobacco Use Types Packs/Day Years Used Date Smoking Tobacco: Never Smokeless Tobacco: Never Alcohol Use Standard Drinks/Week Comments Not Currently 0 (1 standard drink = 0.6 oz pur e alcohol) socially. Comments Unknown Sex and Gender Information Value Date Recorded Sex Assigned at Female 02/23/2017 9:38 AM EST Legal Sex Female 8:50 PM EDT Gender Identity Female 02/23/2017 9:38 AM EST Sexual Orientation Straight 02/23/2017 9: 38 AM EST documented as of this encounter Functional Status * Calculated C-SSRS Risk Score (Lifetime/Recent) Answer Date of Assessment Author No Risk Indicated 08/11/2021 5:06 PM YADYT Maricruz Sanchez RN * Butler Suicide Severity Rating Scale (Screener/Recent Self-Report) Question Answer Date of Assessment Author 1. Wish to be (Past 1 Month) No 08/11/2021 5:06 PM EDT Maricruz Sanchez RN 2. Non-Specific Active Suici easton Thoughts (Past 1 Month) No 08/11/2021 5:06 PM EDT Tabitha Sanchez RN 6. Suicidal Behavior (Lifetime) No 5:06 PM EDT Maricruz Sanchez RN documented as of this encounter Plan of Treatment Not on file documented as of this encounter Visit Diagnoses Not on filedocumented in this encounter Additional Health Concerns Assessment Noted Time PHQ-2 Depression Total Score: 0 07/09/19 19 9:36 AM EDT documented as of this encounter Care Teams Fire Lieutenant Marine Relationship Specialty Start Date End Date Unknown, Unknown, [address] [place] [address], [address] [place] [address] PCP - General 06/14/19 David Quinn MD [address] [place] [address], [address] [place] [address] [email or web address] Historical LMR Provider 12/06/16 documented as of this encounter Additional Source Comments The information contained in this document represents components of the legal health record. It is not the complete legal health record.[facility]
--- OUTSIDE RECORDS SUMMARY | 2024-10-20 07:00 | XMS_ITS | Encounter Summary ---
Author Organization [facility] Address [address] [address] Phone Care Team Providers Care Quality Assurance Monitor Body Name Role Phone David Quinn MD Primary Care Provider Ramonita Ochoa HELP DESK REP Unavailable [phone] Kelton Rahman MD Unavailable Nayana Murray HELP DESK REP Unavailable Unavailable Elisha Thompson CLOTHING SORTER Unavailable [phone] Ashia Rizzo MD Unavailable David Quinn MD Unavailable [phone] David Quinn MD Unavailable [phone] Unknown, Unknown Primary Care Provider Debbie pradhan Encounter Details Date Type Department Care Team (Late st Contact Info) Description 03/02/2017 Ancillary Orders [facility]ics & Sports Medicine [address] [place] [address] Noemy Morales PA-C [address] [place] [address] Orthopedics & Sports Medicine, [facility] [place], [place] [id number] [email or web address] Social History Tobacco Use Types Packs/Day Years Used Date Smoking Tobacco: Never Smokeless Tobacco: Never Alcohol Use Standard Drinks/Week Comments No 0 (1 standard drink = 0.6 oz pur e alcohol) Comments Unknown Sex and Gender Information Value Date Recorded Sex Assigned at Female 02/23/2017 9:38 AM EST Legal Sex Female 8:50 PM EDT Gender Identity Female 02/23/2017 9:38 AM EST Sexual Orientation Straight 02/23/2017 9: 38 AM EST documented as of this encounter Plan of Treatment Not on file documented as of this encounter Visit Diagnoses Not on filedocumented in this encounter Care Teams Quality Assurance Monitor Body Relationship Specialty Start Date End Date David Quinn MD [address] [place] [address], [address] [place] [address] PCP - General 12/02/16 06/13/19 Unknown, Jaqueline, [address] [place] [address], [address] [place] [address] PCP - General 06/14/19 Ramonita Ochoa NP [address] [place] [address] [email or web address] Historical LMR Provider 12/06/16 Kelton Rahman MD [address] [place] [address], [address], [address] [place] [address] Historical LMR Provider 12/06/16 02/23/21 Nayana Murray HELP DESK REP Historical LMR Provider 12/06/16 02/23/21 Elisha Thompson FNP [address] [facility], [address], [address] [place] [address] [email or web address] Historical LMR Provider 12/06/16 02/23/21 Ashia Rizzo MD [address] [facility], [address], [address] [place] [address] Historical LMR Provider 12/06/16 02/23/21 David Quinn MD [address] [place] [address], [address] [place] [address] Historical LMR Provider 12/06/16 David Quinn MD [address] [place] [address], [address] [place] [address] [email or web address] Insurance Assigned Provider 05/22/18 documented as of this encounter Additional Source Comments The information contained in this document represents components of the legal health record. It is not the complete legal health record.[facility]
--- OUTSIDE RECORDS SUMMARY | 2024-10-20 07:00 | XMS_ITS | Encounter Summary ---
Author Organization [facility] Address [address] [address] Phone Care Team Providers Care Lathe Spotter Name Role Phone David Quinn MD Primary Care Provider Ramonita Ochoa SUPERVISOR GRADING Unavailable Kelton Rahman MD Unavailable Nayana Murray SUPERVISOR GRADING Unavailable Unavailable Elisha Thompson ADMINISTRATIVE STAFF SUPERVISOR Unavailable Ashia Rizzo MD Unavailable David Quinn MD Unavailable [phone] David Quinn MD Unavailable [phone] Unknown, Unknown Primary Care Provider Debbie pradhan Encounter Details Date Type Department Care Team (Late st Contact Info) Description 03/12/2017 Ancillary Orders [facility] Orthopedics & Sports Medicine [address] [place] [address] Noemy Morales PA-C [address] [place] [address] Orthopedics & Sports Medicine, [facility] [place], [place] [id number] [email or web address] Social History Tobacco Use Types Packs/Day Years [...] on filedocumented in this encounter Care Teams Lathe Spotter Relationship Specialty Start Date End Date David Quinn MD [address] [place] [address], [address] [place] [address] PCP - General 12/02/16 06/13/19 Unknown, Jaqueline, [address] [place] [address], [address] [place] [address] PCP - General 06/14/19 Ramonita Ochoa NP [address] [place] [id number] [email or web address] Historical LMR Provider 12/06/16 Kelton Rahman MD [address] [place] [address], [address], [address] [place] [address] Historical LMR Provider 12/06/16 02/23/21 Nayana Murray SUPERVISOR GRADING Historical LMR Provider 12/06/16 02/23/21 Elisha Thompson FNP [address] [facility], [address], [address] [place] [address] [email or web address] Historical LMR Provider 12/06/16 02/23/21 Ashia Rizzo MD [address] [facility], [address], [address] [place] [address] Historical LMR Provider 12/06/16 02/23/21 David Quinn MD [address] [place] [address], [address] [place] [address] Historical LMR Provider 12/06/16 David Quinn MD [address] [place] [address], [address] [place] [address] [email or web address] Insurance Assigned Provider 05/22/18 documented as of this encounter Additional Source Comments The information contained in this document represents components of the legal health record. It is not the complete legal health record.[facility]
--- OUTSIDE RECORDS SUMMARY | 2024-10-20 07:00 | XMS_ITS | Encounter Summary ---
Author Organization [facility] Address [address] [address] Phone Care Team Providers Care Case Operator Name Role Phone David Quinn MD Primary Care Provider Ramonita Ochoa ELEVATOR SERVICE TECHNICIAN Unavailable [phone] Kelton Rahman MD Unavailable Nayana Murray ELEVATOR SERVICE TECHNICIAN Unavailable Unavailable Elisha Thompson STEAMTABLE WORKER Unavailable Ashia Rizzo MD Unavailable David Quinn MD Unavailable [phone] David Quinn MD Unavailable [phone] Unknown, Unknown Primary Care Provider Debbie pradhan Encounter Details Date Type Department Care Team (Late st Contact Info) Description 03/12/2017 Ancillary Orders [address] [address] Noemy Morales PA-C [address] [place] [address] Orthopedics & Sports Medicine, [place] [address] [email or web address] Right ankle pain, unspecified chronicity Social History Tobacco Use Types Packs/Day Years [...] on file documented as of this encounter Results * XR ANKLE 3 OR MORE VIEWS (RIGHT) (03/16/2017 11:12 AM EST) Narrative Maryellen Sweet - 03/16/2017 11:12 AM EST This image report has been auto-finalized and has not been read by a Radiologist. Interpretation has been included in the provider encounter note for this date of service. us Noemy Morales PA-C IMG XR LOWER EXTREMITY F inal Result documented in this encounter Visit Diagnoses Diagnosis Right ankle pain, unspecified chronicity Right ankle pain, unspecified chronicity documented in this encounter Care Teams Case Operator Relationship Specialty Start Date End Date David Quinn MD [address] [place] [address], [address] [place] [address] [email or web address] PCP - General 12/02/16 06/13/19 Jaqueline, Jaqueline, [address] [place] [address], [address] [place] [address] PCP - General 06/14/19 Ramonita Ochoa NP [address] [place] [address] [email or web address] Historical LMR Provider 12/06/16 Kelton Rahman MD [address] [place] [address] [address], [address] [place] [address] Historical LMR Provider 12/06/16 02/23/21 Nayana Murray NP Historical LMR Provider 12/06/16 02/23/21 Elisha Thompson FNP [address] [facility], [address], [address] [place] [address] Historical LMR Provider 12/06/16 02/23/21 Ashia Rizzo MD [address] [facility] [facility], [address], [address] [place] [address] [email or web address] Historical LMR Provider 12/06/16 02/23/21 David Quinn MD [address] [place] [address], [address] [place] [address] Historical LMR Provider 12/06/16 David Quinn MD [address] [place] [address], [address] [place] [address] Insurance Assigned Provider 05/22/18 documented as of this encounter Additional Source Comments The information contained in this document represents components of the legal health record. It is not the complete legal health record.[facility]
--- OUTSIDE RECORDS SUMMARY | 2024-10-20 07:00 | XMS_ITS | Encounter Summary ---
Author Organization [facility] Address [address] [address] Phone Care Team Providers Care Decorating Equipment Setter Name Role Phone David Quinn MD Primary Care Provider Ramonita Ochoa CREDIT PORTFOLIO ADVISOR Unavailable [phone] Kelton Rahman MD Unavailable Nayana Murray CREDIT PORTFOLIO ADVISOR Unavailable Unavailable Elisha Thompson AIR BAG CURER Unavailable Ashia Rizzo MD Unavailable David Quinn MD Unavailable [phone] David Quinn MD Unavailable [phone] Unknown, Unknown Primary Care Provider Debbie pradhan Encounter Details Date Type Department Care Team (Late st Contact Info) Description 03/02/2017 Ancillary Orders [address] [address] Noemy Morales PA-C [address] [place] [address] Orthopedics & Sports Medicine, [place] [address] [email or web address] Right ankle pain, unspecified chronicity Social History [...] XR ANKLE 3 OR MORE VIEWS (RIGHT) (03/04/2017 2:51 PM EST) Narrative Ramnoita Garza - 03/04/2017 2:51 PM EST This image report has been auto-finalized and has not been read by a Radiologist. Interpretation has been included in the provider encounter note for this date of service. Noemy Morales PA-C IMG XR LOWER EXTREMITY F inal Result documented in this encounter Visit Diagnoses Diagnosis Right ankle pain, unspecified chronicity Right ankle pain, unspecified chronicity documented in this encounter Care Teams Decorating Equipment Setter Relationship Specialty Start Date End Date David Quinn MD [address] [place] [address], [address] [place] [address] [email or web address] PCP - General 12/02/16 06/13/19 Unknown, Jaqueline, [address] [place] [address], [address] [place] [address] PCP - General 06/14/19 Ramonita Ochoa NP [address] [place] [address] [email or web address] Historical LMR Provider 12/06/16 Kelton Rahman MD [address] [place] [address] [address], [address] [place] [address] Historical LMR Provider 12/06/16 02/23/21 Nayana Murray NP Historical LMR Provider 12/06/16 02/23/21 Elisha Thompson FNP 38 [facility]. 204, [address] [place] [address] Historical LMR Provider 12/06/16 02/23/21 Ashia Rizzo MD 38 [facility], [address], [address] [place] [address] [email or web address] Historical LMR Provider 12/06/16 02/23/21 David Quinn MD [address] [place] [address], [address] [place] [address] Historical LMR Provider 12/06/16 David Quinn MD [address] [place] [address], [address] [place] [address] Insurance Assigned Provider 05/22/18 documented as of this encounter Additional Source Comments The information contained in this document represents components of the legal health record. It is not the complete legal health record.[facility]
--- OUTSIDE RECORDS SUMMARY | 2024-10-20 07:01 | XMS_ITS | Patient Health Record ---
Author Organization [facility] Address [address] [place] [address] Care Team Providers Care Director Of Advertising Sales Name Role Phone TEVIN PELAEZ Primary Care Provider Declan Sims Jr Unavailable Allergies Allergen (clinical drug ingredient) Drug/Non Drug Allergy documented on EMR Reaction Allergy Type Onset Date Status doxycycline Doxycycline Unknown Drug Allergy Act brenda Substance with sulfonamide structure and antibacterial mechanism of action (substance) Sulfa Antibiotics Unknown Drug Allergy A ctive Latex Latex Unknown Allergy Active amoxicillin Amoxicillin Unknown Drug Allergy Act brenda Keflex Unknown Drug Allergy Active metronidazole Flagyl Unknown Drug Allergy Act brenda sulfamethoxazole / trimethoprim Bactrim Unknown Drug Allergy Active Results Component Value Reference Range Notes Complete Blood Count Auto Di ff Reviewed date:03/16/2024 08:28:05 AM Interpretation: Performing Lab:[facility], [address] [place] [phone] Notes/Report: White Blood Count 6.7 4.8-10.8 X10*3/uL [...] te Reviewed date:03/16/2024 08:27:51 AM Interpretation: Performing Lab:[facility], [address] [place] [phone] Notes/Report: Erythrocyte Sedimentation Rate 9 0-20 MM/HR Patients with polycythemia and many hemoglobin abnormalities may have depressed sed rates whereas patients with anemia may have elevated sed rates. Liver Panel Reviewed date:03/16/2024 08:27:45 AM Interpretation: Performing Lab:[address] [phone] Notes/Report: Bilirubin Total 0.5 0.0-1.0 mg/dL Bilirubin Direct 0.2 0.0-0.5 mg/dL Aspartate Amino Transferase 19 5-31 U/L Alanine Aminotransferase 16 0-31 U/L Total Protein 7.7 6.5-8.0 g/dL Albumin Level 4.1 3.5-5.0 g/dL Alkaline Phosphatase 130 39-117 U/L C Reactive Protein Reviewed date:03/16/2024 08:27:58 AM Interpretation: Performing Lab:[address] [phone] Notes/Report: C Reactive Protein 0.22 < or = 0.50 mg/dL Nereida Mckeon UST Reviewed date:03/22/2024 04:50:48 PM Interpretation: Performing Lab:[address] [phone] Notes/Report: Nereida Mckeon UST SEE NOTE SEE SCA NNED RESULTS IN EMR Complete Blood Count no Diff Reviewed date:07/28/2024 11:02:46 AM Interpretation: Performing Lab:[address] [phone] Notes/Report: White Blood Count 4.9 4.8-10.8 X10*3/uL [...] te Reviewed date:07/28/2024 11:02:31 AM Interpretation: Performing Lab:[address] [phone] Notes/Report: Erythrocyte Sedimentation Rate 7 0-20 MM/HR Patients with polycythemia and many hemoglobin abnormalities may have depressed sed rates whereas patients with anemia may have elevated sed rates. Liver Panel Reviewed date:07/28/2024 11:02:19 AM Interpretation: Performing Lab:[address] [address] Notes/Report: Bilirubin Total 0.4 0.0-1.0 mg/dL Bilirubin Direct 0.2 0.0-0.5 mg/dL Aspartate Amino Transferase 18 5-31 U/L Alanine Aminotransferase 12 0-31 U/L Total Protein 7.3 6.5-8.0 g/dL Albumin Level 4.4 3.5-5.0 g/dL Alkaline Phosphatase 86 39-117 U/L C Reactive Protein Reviewed date:07/28/2024 11:02:07 AM Interpretation: Performing Lab:[facility], [address] [place] [phone] Notes/Report: C Reactive Protein 0.95 < or = 0.50 mg/dL Liver Fibrosis Pnl Reviewed date:08/05/2024 03:52:52 PM Interpretation: Performing Lab:[facility], [address] [place] [phone] Notes/Report: Liver Fibrosis Score 0.05 Liver Fibrosis [...] a>0.62 and a<=1.00 : A3 (severe activity) NYB-Uyhna-5-Macroglobulin 192 106-279 mg/dL FIB-Haptoglobin 133 43-212 mg/dL FIB-Apolipoprotein A1 134 101-198 mg/dL FIB-Total Bilirubin 0.3 0.2-1.2 mg/dL FIB-GGT 10 3-40 U/L FIB-ALT 10 6-29 U/L Reference ID [id number] Footnote SEE NOTE The reliability of results [...] The performance characteristics have been determined by [facility]. It has not been cleared or approved by the U.S. Food and Drug Administration. Performance characteristics refer to the analytical performance of the test. [employer], the associated logo, [employer] and all associated [employer] boo are the registered trademarks of [employer]. All third green party boo - (R) and (TM) - are the property of their respective owners. (C) 3424-0492 [employer]. All rights reserved. THIS TEST WAS PERFORMED AT: [facility] [address] [place] [address] KAVITA PEREZ MD,PHD,DAVID Mitochondrial Antibody Reviewed date:08/02/2024 04:12:46 PM Interpretation: Performing Lab:[facility], [address] [place] [phone] Notes/Report: Mitochondrial Antibodies NEGATIVE NEGATIVE THIS TEST WAS PERFORMED AT: [facility] [address] [address] GIULIANO VIDAL MD Mitochondrial Ab Titer TNP Complete Blood Count no Diff Reviewed date:08/29/2024 08:05:02 AM Interpretation: Performing Lab:[facility], [address] [place] [phone] Notes/Report: White Blood Count 5.8 4.8-10.8 X10*3/uL Red Blood Count 4.87 4.20-5.50 X10*6/uL Hemoglobin 15.0 12.0-16.0 g/dl Hematocrit 43.7 37.0-47.0 % Mean Corpuscular Volume 89.7 80.0-98.0 fL Mean Corpuscular Hemoglobin 30.8 27.0-33.0 pg Mean Corpuscular HGB Conc 34.3 31.0-35.0 g/dl Red Cell Distribution Width 13.0 11.0-16.0 % Platelet Count 286 160-400 X10*3/uL Mean Platelet Volume 8.9 9.4-12.3 fL NRBC Pct Auto 0.0 0.0-0.2 /100WBC NRBC Abs Auto 0.000 0.0-0.012 X10*3/uL Erythrocyte Sedimentation Ra te Reviewed date:08/29/2024 08:04:40 AM Interpretation: Performing Lab:[facility], [address] [place] [phone] Notes/Report: Erythrocyte Sedimentation Rate 7 0-20 MM/HR Patients with polycythemia and many hemoglobin abnormalities may have depressed sed rates whereas patients with anemia may have elevated sed rates. Liver Panel Reviewed date:08/29/2024 08:04:53 AM Interpretation: Performing Lab:[facility], [address] [place] [phone] Notes/Report: Bilirubin Total 0.4 0.0-1.0 mg/dL Bilirubin Direct 0.1 0.0-0.5 mg/dL Aspartate Amino Transferase 16 5-31 U/L Alanine Aminotransferase 15 0-31 U/L Total Protein 7.9 6.5-8.0 g/dL Albumin Level 4.6 3.5-5.0 g/dL Alkaline Phosphatase 102 39-117 U/L C Reactive Protein Reviewed date:08/29/2024 08:04:43 AM Interpretation: Performing Lab:[facility], [address] [place] [phone] Notes/Report: C Reactive Protein 0.52 < or = 0.50 mg/dL [employer] [facility] UST Reviewed date:09/08/2024 09:44:14 AM Interpretation: Performing Lab:[facility], [address] [place] [phone] Notes/Report: [employer] An[facility] UST SEE NOTE SEE SCA NNED RESULTS IN EMR. [facility] Crohn's Reviewed date:09/08/2024 09:44:45 AM Interpretation: Performing Lab:[facility], [address] [place] [phone] Notes/Report: [facility] Crohn's SEE NOTE SE E SCANNED RESULTS IN EMR Liver Fibrosis Pnl Reviewed date:09/08/2024 09:44:25 AM Interpretation: Performing Lab:[facility], [address] [place] [phone] Notes/Report: Liver Fibrosis Score 0.04 Liver Fibrosis Stage F0 Liver Fibrosis Interpretation [...] a>0.62 and a<=1.00 : A3 (severe activity) QAI-Nmcte-4-Macroglobulin 194 106-279 mg/dL FIB-Haptoglobin 179 43-212 mg/dL FIB-Apolipoprotein A1 164 101-198 mg/dL FIB-Total Bilirubin 0.4 0.2-1.2 mg/dL FIB-GGT 12 3-40 U/L FIB-ALT 11 6-29 U/L Reference ID [id number] Footnote SEE NOTE The reliability of results is dependent on compliance with the preanalytical and analytical conditions recommended by [employer]. The tests have to be deferred for: [...] The performance characteristics have been determined by [facility]. It has not been cleared or approved by the U.S. Food and Drug Administration. Performance characteristics refer to the analytical performance of the test. [employer], the associated logo, [employer] and all associated [employer] boo are the registered trademarks of [employer]. All third green party boo - (R) and (TM) - are the property of their respective owners. (C) 3838-3052 [employer]. All rights reserved. THIS TEST WAS PERFORMED AT: [facility] [address] [place] [address] KAVITA PEREZ MD,PHD,DAVID Mitochondrial Antibody Reviewed date:08/31/2024 03:59:24 PM Interpretation: Performing Lab:[facility], [address] [place] [phone] Notes/Report: Mitochondrial Antibodies NEGATIVE NEGATIVE THIS TEST WAS PERFORMED AT: [facility] [address] [place] [phone] GIULIANO VIDAL MD Mitochondrial Ab Titer TNP Reason For Referral No Information Medications Medication SIG (Take, Route, Frequency, Duration) Notes Start Date End Date Status Skyrizi 150 MG/ML 1 mL Subcutaneous fo r 90 days Active LORazepam 0.5 MG 1 tablet at bedtime as needed Orally Once a day Active Cetirizine HCl 10 MG 1 tablet Orally Onc e a day for 30 day(s) Active Prednisone 1 tab Oral [...] Problem Status W/U Status Risk Notes Problem Crohn's disease of small AND large intestines (55593336) Crohn''s disease of both small and large intestine with rectal bleeding (K50.811) Active confirmed Problem [id number] Alkaline phosphatase elevation (R74.8) Active confirmed Vital Signs Temperature 97.8 degrees Fahrenheit 03/28/2024 Blood pressure diastolic 00 mm Hg 03/28/2024 Height 65 in 03/28/2024 Blood pressure systolic 000 mm Hg 03/28/2024 Weight 188 lb 4 oz lbs 03/28/2024 BMI 31.32 kg/m2 03/28/2024 Encounters Encounter Location Date Provider Diagnosis [facility] [address] [place] [address] [place] [address] 03/28/2024 Declan Raphael Jr Crohn's disease of both small and large intestine with rectal bleeding K50.811 and Alkaline phosphatase elevation R74.8 [facility] [address] [place] [phone] 03/22/2024 Declan Raphael Jr [facility] [address] [place] [phone] 07/01/2024 Declan Raphael Jr Crohn''s disease of both small and large intestine with rectal bleeding K50.811 [facility] [address] [place] [phone] 08/05/2024 Declan Raphael Jr [facility] [address] [place] [phone] 09/08/2024 Declan Raphael Jr [facility] [address] [place] [phone] 09/21/2024 Declan Raphael Jr [facility] [address] [place] [phone] 10/19/2024 Declan Raphael Jr Crohn''s disease of both small and large intestine with rectal bleeding K50.811 Assessments Encounter Date Diagnosis (ICD Code) Assessment Notes Treatment Notes Treatment Clinical Notes Section Notes 10/19/2024 Crohn''s disease of both small and large intestine with rectal bleeding (ICD-10 - K50.811) 03/28/2024 Crohn's disease of both small and large intestine with rectal bleeding (ICD-10 - K50.811) Crohn disease material was printed At this time, she is doing well. She will continue treatment with skyrizi. We recommended repeating laboratory tests in July or August and monitoring her alkaline phosphatase. She asked about taking an yjun-bue-dhuwhe r supplements for immune system health, which we don't think is a problem. Because of the way skyrizi targets inflammation, it seems unlikely that her autoimmune conditions will be exacerbated by this. Followup in months. 03/28/2024 Alkaline phosphatase elevation (ICD-10 - R74.8) At this time, she is doing well. She will continue treatment with skyrizi. We recommended repeating laboratory tests in July or August and monitoring her alkaline phosphatase. She asked about taking an iqvr-agr-pgsfga r supplements for immune system health, which we don't think is a problem. Because of the way skyrizi targets inflammation, it seems unlikely that her autoimmune conditions will be exacerbated by this. Followup in 12 months. 07/01/2024 Crohn''s disease of both small and large intestine with rectal bleeding (ICD-10 - K50.811) k Plan Of Treatment Pending Test Test Name Order Date LIVER PROFILE 10/13/2023 LIVER PROFILE 06/05/2022 LIVER PROFILE 10/19/2024 LIVER PROFILE 11/06/2022 LIVER PROFILE 08/29/2022 LIVER PROFILE 07/08/2023 LIVER PROFILE 04/28/2022 LIVER PROFILE 03/28/2024 LIPASE 08/29/2022 LIPASE 07/08/2023 LIPASE 04/28/2022 LIPASE 06/05/2022 LIPASE 10/19/2024 LIPASE 11/06/2022 CRP 03/28/2024 CRP 11/06/2022 CRP 08/29/2022 CRP 07/08/2023 CRP 10/13/2023 CRP 06/05/2022 CBC w DIFF 08/29/2022 CBC w DIFF 07/08/2023 CBC w DIFF 10/19/2024 CBC w DIFF 06/05/2022 CBC with MANUAL DIFFERENTIAL 10/13/2023 CBC w/o DIFF 04/28/2022 CBC w/o DIFF 03/28/2024 CBC w/o DIFF 11/06/2022 SED RATE (ESR) 06/05/2022 SED RATE (ESR) 03/28/2024 SED RATE (ESR) 11/06/2022 SED RATE (ESR) 08/29/2022 SED RATE (ESR) 07/08/2023 SED RATE (ESR) 10/13/2023 MITOCHONDRIAL AB 03/28/2024 US ABD 07/03/2022 PROMETHEUS ANSER UST 10/13/2023 [facility] Monitr Crohn's 07/01/2024 Liver Fibrosis Pnl 03/28/2024 T Spot TB 08/29/2022 Thiopurine Metabolites 06/05/2022 Thiopurine Metabolites 04/28/2022 Next Appt Details Provider Name:Declan Mendieta Gennarocharito houselatrell Rogel, 04/03/2025 09:00:00 AM, [address], [address], [place], [address], Insurance Providers Payer Name Payer Address Payer Phone Subscriber Number Group Number Insured Name Patient Relationship to Insured Coverage Start Date Coverage End Date [facility] [address] [place] [address] [phone] [id number] ANGELES ONOFRE Self - patient is the [...]
--- OUTSIDE RECORDS SUMMARY | 2024-10-20 07:01 | XMS_ITS | Encounter Summary ---
Author Organization [facility] Address [address] [address] Phone Care Team Providers Care Education Intern Name Role Phone David Quinn MD Primary Care Provider Ramonita Ochoa RABBET OPERATOR Unavailable [phone] Kelton Rahman MD Unavailable Nayana Murray RABBET OPERATOR Unavailable Unavailable Elisha Thompson CABLE INSTALLER REPAIRER HELPER Unavailable Ashia Rizzo MD Unavailable David Quinn MD Unavailable [phone] David Quinn MD Unavailable [phone] Unknown, Unknown Primary Care Provider Debbie pradhan Encounter Details Date Type Department Care Team (Late st Contact Info) Description 04/17/2017 Ancillary Orders [facility]ics & Sports Medicine [address] [place] [address] Noemy Morales PA-C [address] [place] [address] Orthopedics & Sports Medicine, [facility] [place], [place] [id number] [email or web address] Social History Tobacco Use Types Packs/Day Years [...] on filedocumented in this encounter Care Teams Education Intern Relationship Specialty Start Date End Date David Quinn MD [address] [place] [address], [address] [place] [address] PCP - General 12/02/16 06/13/19 Unknown, Jaqueline, [address] [place] [address], [address] [place] [address] PCP - General 06/14/19 Ramonita Ochoa NP [address] [place] [id number] [email or web address] Historical LMR Provider 12/06/16 Kelton Rahman MD [address] [place] [address], [address], [address] [place] [address] Historical LMR Provider 12/06/16 02/23/21 Nayana Murray RABBET OPERATOR Historical LMR Provider 12/06/16 02/23/21 Elisha Thompson FNP [address] [facility], [address], [address] [place] [address] [email or web address] Historical LMR Provider 12/06/16 02/23/21 Ashia Rizzo MD [address] [facility], [address], [address] [place] [address] Historical LMR Provider 12/06/16 02/23/21 David Quinn MD [address] [place] [address], [address] [place] [address] Historical LMR Provider 12/06/16 David Quinn MD [address] [place] [address], [address] [place] [address] [email or web address] Insurance Assigned Provider 05/22/18 documented as of this encounter Additional Source Comments The information contained in this document represents components of the legal health record. It is not the complete legal health record.[facility]
--- OUTSIDE RECORDS SUMMARY | 2024-10-20 07:01 | XMS_ITS | Encounter Summary ---
Author Organization [facility] Address [address] [address] Phone Care Team Providers Care Hide Buffer Name Role Phone David Quinn MD Primary Care Provider Ramonita Ochoa COMPLIANCE COUNSEL Unavailable Kelton Rahman MD Unavailable Nayana Murray COMPLIANCE COUNSEL Unavailable Unavailable Elisha Thompson ELEMENTARY CLASSROOM TEACHER Unavailable Ashia Rizzo MD Unavailable David Quinn MD Unavailable [phone] David Quinn MD Unavailable [phone] Unknown, Unknown Primary Care Provider Debbie pradhan Encounter Details Date Type Department Care Team (Late st Contact Info) Description 02/26/2017 Ancillary Orders [address] [address] Noemy Morales PA-C [address] [place] [address] Orthopedics & Sports Medicine, [place] [address] [email or web address] Right ankle pain, unspecified chronicity Social History [...] XR ANKLE 3 OR MORE VIEWS (RIGHT) (02/27/2017 1:29 PM EST) Narrative Marguerite Johnson - 02/27/2017 1:29 PM EST This image report has been auto-finalized and has not been read by a Radiologist. Interpretation has been included in the provider encounter note for this date of service. Noemy Morales PA-Elisha IMG XR LOWER EXTREMITY F inal Result documented in this encounter Visit Diagnoses Diagnosis Right ankle pain, unspecified chronicity Right ankle pain, unspecified chronicity documented in this encounter Care Teams Hide Buffer Relationship Specialty Start Date End Date David Quinn MD [address] [place] [address], [address] [place] [address] PCP - General 12/02/16 06/13/19 Unknown, Jaqueline, [address] [place] [address], [address] [place] [address] PCP - General 06/14/19 Ramonita Ochoa NP [address] [place] [address] [email or web address] Historical LMR Provider 12/06/16 Kelton Rahman MD [address] [place] [address] [address], [address] [place] [address] Historical LMR Provider 12/06/16 02/23/21 Nayana Murray NP Historical LMR Provider 12/06/16 02/23/21 Jay Elisha BLAIR Lopez 38 [facility]. [address], [address] [place] [address] Historical LMR Provider 12/06/16 02/23/21 Ashia Rizzo MD 38 [facility], [address], [address] [place] [address] [email or web address] Historical LMR Provider 12/06/16 02/23/21 David Quinn MD [address] [place] [address], [address] [place] [address] Historical LMR Provider 12/06/16 David Quinn MD [address] [place] [address], [address] [place] [address] Insurance Assigned Provider 05/22/18 documented as of this encounter Additional Source Comments The information contained in this document represents components of the legal health record. It is not the complete legal health record.[facility]
--- OUTSIDE RECORDS SUMMARY | 2024-10-20 07:01 | XMS_ITS | Encounter Summary ---
Author Organization [facility] Address [address] [place] [address] [address] Phone Care Team Providers Care Equity Director Name Role Phone David Quinn MD Primary Care Provider Ramonita Ochoa FEDERAL APPELLATE CLERK Unavailable [phone] Kelton Rahman MD Unavailable Nayana Murray FEDERAL APPELLATE CLERK Unavailable Unavailable Elisha Thompson WOOD HEEL FLAP RUBBER Unavailable Ashia Rizzo MD Unavailable David Quinn MD Unavailable [phone] David Quinn MD Unavailable [phone] Unknown, Unknown Primary Care Provider Debbie pradhan Encounter Details Date Type Department Care Team (Late st Contact Info) Description 02/26/2017 Ancillary Orders [facility] Orthopedics & Sports Medicine [address] [place] [address] Noemy Morales PA-C [address] [place] [address] Orthopedics & Sports Medicine, [facility]. [place], [place] [id number] Social History Tobacco Use Types Packs/Day Years [...] on filedocumented in this encounter Care Teams Equity Director Relationship Specialty Start Date End Date David Quinn MD [address] [place] [address], [address] [place] [address] PCP - General 12/02/16 06/13/19 Unknown, Jaqueline, [address] [place] [address], [address] [place] [address] PCP - General 06/14/19 Ramonita Ochoa NP [address] [place] [phone] [email or web address] Historical LMR Provider 12/06/16 Kelton Rahman MD [address] [place] [address], [address], [address] [place] [address] Historical LMR Provider 12/06/16 02/23/21 Nayana Murray FEDERAL APPELLATE CLERK Historical LMR Provider 12/06/16 02/23/21 Elisha Thompson FNP 38 [facility], [address], [address] [place] [address] Historical LMR Provider 12/06/16 02/23/21 Ashia Rizzo MD 38 [facility], [address], [address] [place] [address] Historical LMR Provider 12/06/16 02/23/21 David Quinn MD [address] [place] [address], [address] [place] [address] Historical LMR Provider 12/06/16 David Quinn MD [address] [place] [address], [address] [place] [address] Insurance Assigned Provider 05/22/18 documented as of this encounter Additional Source Comments The information contained in this document represents components of the legal health record. It is not the complete legal health record.[facility]
--- OUTSIDE RECORDS SUMMARY | 2024-10-20 07:01 | XMS_ITS | Encounter Summary ---
Author Organization [facility] Address [address] [address] Phone Care Team Providers Care Rush Seater Name Role Phone David Quinn MD Primary Care Provider Ramonita Ochoa SPECIAL NEEDS NANNY Unavailable [phone] Kelton Rahman MD Unavailable Nayana Murray SPECIAL NEEDS NANNY Unavailable Unavailable Elihsa Thompson DIE ATTACHING MACHINE TENDER Unavailable Ashia Rizzo MD Unavailable David Quinn MD Unavailable [phone] David Quinn MD Unavailable [phone] Unknown, Unknown Primary Care Provider Debbie pradhan Encounter Details Date Type Department Care Team (Late st Contact Info) Description 05/15/2017 Ancillary Orders [facility] Orthopedics & Sports Medicine [address] [place] [address] Noemy Morales PA-C [address] [place] [address] Orthopedics & Sports Medicine, [facility]. [place], [place] [id number] [email or web address] Social History Tobacco Use Types Packs/Day Years [...] on filedocumented in this encounter Care Teams Rush Seater Relationship Specialty Start Date End Date David Quinn MD [address] [place] [address], [address] [place] [address] PCP - General 12/02/16 06/13/19 Unknown, Jaqueline, [address] [place] [address], [address] [place] [address] PCP - General 06/14/19 Ramonita Ochoa NP [address] [place] [address] [email or web address] Historical LMR Provider 12/06/16 Kelton Rahman MD [address] [place] [address], [address], [address] [place] [address] Historical LMR Provider 12/06/16 02/23/21 Nayana Murray SPECIAL NEEDS NANNY Historical LMR Provider 12/06/16 02/23/21 Elisha Thompson FNP 38 [facility], [address], [address] [place] [address] [email or web address] Historical LMR Provider 12/06/16 02/23/21 Ashia Rizzo MD 38 [facility], [address], [address] [place] [address] Historical LMR Provider 12/06/16 02/23/21 David Quinn MD [address] [place] [address], [address] [place] [address] Historical LMR Provider 12/06/16 David Quinn MD [address] [place] [address], [address] [place] [address] [email or web address] Insurance Assigned Provider 05/22/18 documented as of this encounter Additional Source Comments The information contained in this document represents components of the legal health record. It is not the complete legal health record.[facility]
--- OUTSIDE RECORDS SUMMARY | 2024-10-20 07:01 | XMS_ITS | Encounter Summary ---
Author Organization [facility] Address [address] [address] Phone Care Team Providers Care Fashion Artist Name Role Phone David Quinn MD Primary Care Provider Ramonita Ochoa HUMAN RESOURCES SUPPORT SPECIALIST Unavailable [phone] Kelton Rahman MD Unavailable Nayana Murray HUMAN RESOURCES SUPPORT SPECIALIST Unavailable Unavailable Elisha Thompson SENIOR BIOSTATISTICIAN Unavailable [phone] Ashia Rizzo MD Unavailable David Quinn MD Unavailable [phone] David Quinn MD Unavailable [phone] Unknown, Unknown Primary Care Provider Debbie pradhan Encounter Details Date Type Department Care Team (Late st Contact Info) Description 04/02/2017 Ancillary Orders [facility] Orthopedics & Sports Medicine [address] [place] [address] Noemy Morales PA-C [address] [place] [address] Orthopedics & Sports Medicine, [facility]. [place], [place] [id number] [email or web address] Social History Tobacco Use Types Packs/Day Years [...] on filedocumented in this encounter Care Teams Fashion Artist Relationship Specialty Start Date End Date David Quinn MD [address] [place] [address], [address] [place] [address] PCP - General 12/02/16 06/13/19 Unknown, Jaqueline, [address] [place] [address], [address] [place] [address] PCP - General 06/14/19 Ramonita Ochoa NP [address] [place] [address] [email or web address] Historical LMR Provider 12/06/16 Kelton Rahman MD [address] [place] [address], [address], [address] [place] [address] Historical LMR Provider 12/06/16 02/23/21 Nayana Murray HUMAN RESOURCES SUPPORT SPECIALIST Historical LMR Provider 12/06/16 02/23/21 Elisha Thompson FNP [address] [facility], [address], [address] [place] [address] [email or web address] Historical LMR Provider 12/06/16 02/23/21 Ashia Rizzo MD 38 [facility], [address], [address] [place] [address] Historical LMR Provider 12/06/16 02/23/21 David Quinn MD [address] [place] [address], [address] [place] [address] Historical LMR Provider 12/06/16 David Quinn MD [address] [place] [address], [address] [place] [address] [email or web address] Insurance Assigned Provider 05/22/18 documented as of this encounter Additional Source Comments The information contained in this document represents components of the legal health record. It is not the complete legal health record.[facility]
--- OUTSIDE RECORDS SUMMARY | 2024-10-20 07:01 | XMS_ITS | Encounter Summary ---
Author Organization [facility] Address [address] [address] Phone Care Team Providers Care Gel Coater Name Role Phone David Quinn MD Primary Care Provider Ramonita Ochoa BEDSPREAD FOLDER Unavailable Kelton Rahman MD Unavailable Nayana Murray BEDSPREAD FOLDER Unavailable Unavailable Elisha Thompson HOTEL SECURITY OFFICER Unavailable Ashia Rizzo MD Unavailable David Quinn MD Unavailable David Quinn MD Unavailable [phone] Unknown, Unknown Primary Care Provider Debbie pradhan Encounter Details Date Type Department Care Team (Late st Contact Info) Description 04/02/2017 Ancillary Orders [address] [address] Noemy Morales PA-C [address] [place] [address] Orthopedics & Sports Medicine, [place] [address] [email or web address] Right ankle pain, unspecified chronicity Social History [...] XR ANKLE 3 OR MORE VIEWS (RIGHT) (04/06/2017 11:21 AM EST) Narrative Ramonita Garza - 04/06/2017 11:21 AM EST This image report has been auto-finalized and has not been read by a Radiologist. Interpretation has been included in the provider encounter note for this date of service. Noemy Morales PA-C IMG XR LOWER EXTREMITY F inal Result documented in this encounter Visit Diagnoses Diagnosis Right ankle pain, unspecified chronicity Right ankle pain, unspecified chronicity documented in this encounter Care Teams Gel Coater Relationship Specialty Start Date End Date David Quinn MD [address] [place] [address], [address] [place] [address] PCP - General 12/02/16 06/13/19 Jaqueline, MD Jaqueline [address] [place] [address], [address] [place] [address] PCP - General 06/14/19 Ramonita Ochoa NP [address] [place] [phone] [email or web address] Historical LMR Provider 12/06/16 Kelton Rahman MD [address] [place] [address] 204, [address] [place] [address] maria Historical LMR Provider 12/06/16 02/23/21 Nayana Murray NP Historical LMR Provider 12/06/16 02/23/21 Elisha Thompson, BLAIR [address], [address] [place] [address] Historical LMR Provider 12/06/16 02/23/21 Ashia Rizzo MD [address], [address] [place] [address] Historical LMR Provider 12/06/16 02/23/21 David Quinn MD [address] [place] [address], [address] [place] [address] Historical LMR Provider 12/06/16 David Quinn MD [address] [place] [address], [address] [place] [address] Insurance Assigned Provider 05/22/18 documented as of this encounter Additional Source Comments The information contained in this document represents components of the legal health record. It is not the complete legal health record.[facility]
--- OUTSIDE RECORDS SUMMARY | 2024-10-20 07:01 | XMS_ITS | Encounter Summary ---
Author Organization [facility] Address [address] [address] Phone Care Team Providers Care Data Center Engineer Name Role Phone David Quinn MD Primary Care Provider Ramonita Ochoa WEAVER TIRE CORD Unavailable Kelton Rahman MD Unavailable Nayana Murray WEAVER TIRE CORD Unavailable Unavailable Elisha Thompson CASH PROCESSING SPECIALIST Unavailable [phone] Ashia Rizzo MD Unavailable David Quinn MD Unavailable [phone] David Quinn MD Unavailable [phone] Unknown, Unknown Primary Care Provider Debbie pradhan Encounter Details Date Type Department Care Team (Late st Contact Info) Description 05/15/2017 Ancillary Orders [address] [address] Noemy Morales PA-C [address] [place] [address] Orthopedics & Sports Medicine, [place] [address] [email or web address] Right ankle pain, unspecified chronicity Social History [...] XR ANKLE 3 OR MORE VIEWS (RIGHT) (05/19/2017 2:54 PM EDT) Narrative Marguerite Johnson - 05/19/2017 2:54 PM EDT This image report has been auto-finalized and has not been read by a Radiologist. Interpretation has been included in the provider encounter note for this date of service. Noemy Morales PA-C IMG XR LOWER EXTREMITY F inal Result documented in this encounter Visit Diagnoses Diagnosis Right ankle pain, unspecified chronicity Right ankle pain, unspecified chronicity documented in this encounter Care Teams Data Center Engineer Relationship Specialty Start Date End Date David Quinn MD [address] [place] [address], [address] [place] [address] PCP - General 12/02/16 06/13/19 Unknown, MD Jaqueline [address] [place] [address], [address] [place] [address] PCP - General 06/14/19 Ramonita Ochoa NP [address] [place] [address] [email or web address] Historical LMR Provider 12/06/16 Kelton Rahman MD [address] [place] [address] [address], [address] [place] [address] Historical LMR Provider 12/06/16 02/23/21 Nayana Murray NP Historical LMR Provider 12/06/16 02/23/21 Elisha ThompsonBLAIR 38 [facility], [address], [address] [place] [address] Historical LMR Provider 12/06/16 02/23/21 Ashia Rizzo MD [address], [address], [address] [place] [address] Historical LMR Provider 12/06/16 02/23/21 David Quinn MD [address] [place] [address], [address] [place] [address] Historical LMR Provider 12/06/16 David Quinn MD [address] [place] [address], [address] [place] [address] Insurance Assigned Provider 05/22/18 documented as of this encounter Additional Source Comments The information contained in this document represents components of the legal health record. It is not the complete legal health record.[facility]
--- OUTSIDE RECORDS SUMMARY | 2024-10-20 07:01 | XMS_ITS | Clinical Summary ---
Author Organization [facility] Address [address] [address] Phone Care Team Providers Care Workers Compensation Coordinator Name Role Phone David Quinn MD Unavailable [phone] Unknown, Unknown MD Primary Care Provider Unavai lable Allergies Active Allergy Reactions Criticality Noted Date Comments Amoxicillin 12/24/2016 Sulfamethoxazole-Trimethopri m 12/24/2016 Doxycycline Hyclate 12/24/2016 Fentanyl 02/20/2017 Metronidazole 12/24/2016 Cephalexin 12/24/2016 Latex, Natural Rubber 12/24/2016 Oxycodone-Acetaminophen 02/23/2017 GI upset, headache, dizziness Sulfa (Sulfonamide Antibiotics) 12/24/2016 Medications albuterol (PROAIR HFA) 90 mcg/actuation inhaler Inhale 2 puffs into the lungs every 6 (six) hours as needed for wheezing (For stress induced asthma). Active fluticasone propionate (FLONASE) 50 mcg/actuation nasal spray 1 spray by Nasal route daily. 1 Bottle 04/22/19 19 Active Additional Information Patient not taking.Reported on 07/08/2018 levonorgestrel and ethynyl estradiol (SEASONIQUE) 0.15-0.03 mg 3MPk Take 1 tablet by mouth daily. 4 04/15/19 19 Active omeprazole (PRILOSEC) 40 MG capsule TAKE 1 CAPSULE BY MOUTH TWICE A DAY BEFORE A MEAL 08/07/19 22 Active citalopram (CELEXA) 10 MG tablet Take 10 mg by mouth daily. Active ondansetron (ZOFRAN-ODT) 4 MG disintegrating tablet (To-Go) Take 1-2 tablet(s) by mouth every 8 hours as needed for nausea/vomiting 6 tablet 08/12/19 22 Active Active Problems Problem Noted Date Diagnosed Date Asthma 07/08/2018 Overview (07/08/2018): excersice induced only, no recent sx due to exercise limitations from her ankle fracture. Left ankle injury 05/26/2018 Left ankle pain 05/26/2018 Ankle fracture, right 02/21/2016 Overview (07/08/2018): Feb 20, 2017. Complex fracture, closed reduction, declined surgery. Resolved Problems Problem Noted Date Diagnosed Date Resolved Date Injury of right ankle 02/23/20172018 Immunizations Immunization Administration Dates Next Due DTP 11/06/2000, 8,02/06/1997,12/19,1996 DTP-Hib 02/06/1997,1996,1996 Dtap, 5 Pertussis Antigens 11/06/2000 HPV,quadrivalent 08/23/2010, 1,10/19/2009,08/17 Hepatitis A, Adult 07/19/2007,01/19/2007 Hepatitis B 02/06/1997, 7,1996,10/10,1996,1996 Hepatitis B Adult 02/06/1997,1996,08/13/18 97 Hib, unspecified formulation 12/01/1997, 02/06/1997,1996,10/09 Hib,HbOC 12/01/1997 Hib,PRP-T 12/01/1997, 7,1996,10/09 INFLUENZA, SPLIT VIRUS, TRIVALENT PF 12/05/2013, 12/21/2012 INFLUENZA, SPLIT VIRUS, TRIV ALENT W/ PRESERVATIVE IM 01/22/2012,01/03/2011 IPV 11/06/2000,1996,1996 Influenza Quadrivalent Prese rvative Free IM 12/29/2014 MMR 11/06/2000,12/01/1997 Meningococcal ACWY, unspecif ied formulation 07/19/2007 Meningococcal MPSV4 04/05/2013 Polio - OPV 12/01/1997 Polio, Unspecified Formulation 1,12/01/1997,1996,10/09 Tdap 08/02/2014,01/12/2006 Typhoid, ViCPs 04/05/2013 Typhoid, unspecified formulation 01/19/2007 Varicella 09/19/2010,05/13/2004 Yellow Fever 04/05/2013,01/19/2007 Family History Medical History Relation Comments Cancer Unspecified Diabetes Unspecified Infl. arthritis Unspecified Relation Status Comments Unspecified Social History Tobacco Use Types Packs/Day Years Used Date Smoking Tobacco: Never Smokeless Tobacco: Never Alcohol Use Standard Drinks/Week Comments Not Currently 0 (1 standard drink = 0.6 oz pur e alcohol) socially. Education Answer Date Recorded Are you interested in more education? Not on fay e 06/13/2022 Are you concerned about learning? Not on file 06/13/2022 No 06/13/2022 No 06/13/2022 Digital Access Answer Date Recorded No 07/14/2022 No 07/14/2022 Reliable internet access at home? Not on file 07/14/2022 Device with a working camera? Not on file Comments Unknown Sex and Gender Information Value Date Recorded Sex Assigned at Female 02/23/2017 9:38 AM EST Legal Sex Female 8:50 PM EDT Gender Identity Female 02/23/2017 9:38 AM EST Sexual Orientation Straight 02/23/2017 9: 38 AM EST Last Filed Vital Signs Vital Sign Reading Time Taken Comments Blood Pressure 124/76 08/11/2021 9:24 PM EDT Pulse 92 08/11/2021 9:24 PM EDT Temperature 36.6 C (97.9 F) 08/11/2021 9:24 PM EDT Respiratory Rate 18 08/11/2021 9:24 PM EDT Oxygen Saturation 99% 08/11/2021 9:24 PM EDT Inhaled Oxygen Concentration - - Weight 79.8 kg (176 lb) 07/08/2018 9:33 AM EDT Height 167.6 cm (5' 6 ) 07/08/2018 9:33 AM EDT Body Mass Index 28.41 07/08/2018 9:33 AM EDT Plan of Treatment Health Maintenance Due Date Last Done Comments HEPATITIS C SCREENING 2014 HIV ONE-TIME SCREENING (18-65 YEARS) 2014 PNEUMOCOCCAL VACCINES (0-49 years) (1 of 2 - PCV) 08/14/2015 PAP SMEAR 2017 DEPRESSION SCREENING 07/09/2019 07/08/2018 SMOKING STATUS SCREENING (Once After 26 Yrs) 2022 Adult Td,Tdap Booster 08/02/2024 08/02/2014, 006 INFLUENZA VACCINE (#1) 2024 , 12/29/2014, 12/05/2013, Additional history exists COVID-19 VACCINE ( season) 2024 04/15/2020, 03/25/2020 HIB VACCINES Completed 12/01/1997, 11/16, 12/01/1997, Additional history exists HEPATITIS A VACCINES Completed 07/19/2007, 01/20/20 07 MENINGOCOCCAL VACCINES (ACWY) Aged Out 04/05/2013, 07/19/2007 No longer eligibl e based on patient's age to complete this topic MENINGOCOCCAL VACCINES (B) Aged Out N o longer eligible based on patient's age to complete this topic Medical Devices Not on file Insurance OUT OF STATE PPO BLUE CROSS OUT OF STATE PPO BLUE CROSS OUT OF [facility] PPO BLUE CROSS OUT OF STATE PPO OUT OF [facility] [place] [id number] OUT OF [facility] PPO OUT OF STATE PPO OUT [facility] PPO BLUE CROSS OUT OF STATE PPO Care Teams Workers Compensation Coordinator Relationship Specialty Start Date End Date Unknown, Unknown, [address] [place] [address], [address] [place] [address] PCP - General 06/14/19 David Quinn MD [address] [place] [address], [address] [place] [address] [email or web address] Historical LMR Provider 12/06/16 Additional Source Comments The information contained in this document represents components of the legal health record. It is not the complete legal health record.[facility]
--- OUTSIDE RECORDS SUMMARY | 2024-10-20 07:01 | XMS_ITS | Encounter Summary ---
Author Organization [facility] Address [address] [address] Phone Care Team Providers Care Rn New Graduate Name Role Phone David Quinn MD Primary Care Provider Ramonita Ochoa WIRE MESH KNITTER Unavailable Kelton Rahman MD Unavailable Nayana Murray WIRE MESH KNITTER Unavailable Unavailable Elisha Thompson GRAPHICS EDIT TECHNICIAN Unavailable Ashia Rizzo MD Unavailable David Quinn MD Unavailable [phone] David Quinn MD Unavailable [phone] Unknown, Unknown Primary Care Provider Debbie pradhan Encounter Details Date Type Department Care Team (Late st Contact Info) Description 04/17/2017 Ancillary Orders [address] [address] Noemy Morales PA-C [address] [place] [address] Orthopedics & Sports Medicine, [place] [address] [email or web address] Right ankle pain, unspecified chronicity [...] XR ANKLE 3 OR MORE VIEWS (RIGHT) (04/21/2017 1:19 PM EST) Narrative Ramonita Garza - 04/21/2017 1:19 PM EST This image report has been auto-finalized and has not been read by a Radiologist. Interpretation has been included in the provider encounter note for this date of service. Noemy Morales PA-C IMG XR LOWER EXTREMITY F inal Result documented in this encounter Visit Diagnoses Diagnosis Right ankle pain, unspecified chronicity Right ankle pain, unspecified chronicity documented in this encounter Care Teams Rn New Graduate Relationship Specialty Start Date End Date David Quinn MD [address] [place] [address], [address] [place] [address] PCP - General 12/02/16 06/13/19 Jaqueline, MD Jaqueline [address] [place] [address], [address] [place] [address] PCP - General 06/14/19 Ramonita Ochoa NP [address] [place] [phone] [email or web address] Historical LMR Provider 12/06/16 Kelton Rahman MD [address] [place] [address] [address], [address] [place] [address] maria Historical LMR Provider 12/06/16 02/23/21 Nayana Murray NP Historical LMR Provider 12/06/16 02/23/21 Elisha Thompson, GRAPHICS EDIT TECHNICIAN [address], [address] [place] [address] Historical LMR Provider 12/06/16 02/23/21 Ashia Rizzo MD [address], [address] [place] [address] Historical LMR Provider 12/06/16 02/23/21 David Quinn MD [address] [place] [address], [address] [place] [address] Historical LMR Provider 12/06/16 David Quinn MD [address] [place] [address], [address] [place] [address] Insurance Assigned Provider 05/22/18 documented as of this encounter Additional Source Comments The information contained in this document represents components of the legal health record. It is not the complete legal health record.[facility]
== END 2024-10-20 06:58 | disposition home or self-care (01) ==
LOC: HO.LAB 06:57
PROVIDERS: PCP Internal Medicine Sports Medicine; Visit Provider Internal Medicine Gastroenterology
DX: Z13.89 Encounter for screening for other disorder (principal)

== ENCOUNTER 2024-10-21 06:56 | Outpatient (REF) | payer OTHER, SELFPAY ==
--- OUTSIDE RECORDS SUMMARY | 2024-01-06 05:40 | XMS_ITS ---
Author Organization [facility] Address [address] [facility] [address] [place] [address] Care Team Providers Care Eastern Philosophy Professor Name Role Phone TEVIN PELAEZ Primary Care Provider Declan Sims Jr REASON FOR VISIT crohn's Encounters Encounter Location Date Provider Diagnosis [facility] [address] [facility] [address] [place] [phone] 01/06/2024 Declan Raphael Jr Plan Of Treatment Next Appt Details Provider Name:Declan castro Jr, 04/03/2025 09:00:00 AM, [address] [facility], [address], [place], [address], Progress Notes * ANGELES ONOFREDOB: [birth year] (29 yo F)Acc No.[id number]:01/06/2024 Progress Notes Patient: ANGELES GOMEZ Provider: Sharron Raphael MD :1995 A ge:28 Y S ex:Female Date:01/06/2024 Address:[address] [place] [address] [id number] Pcp:TEVIN PELAEZ Subjective: * Chief Complaints: * [...] 03/07/2023 Generated for Brigid trotter/Mouna/Corin on: 0 10/21/2024 07:04 AM EDT
--- OUTSIDE RECORDS SUMMARY | 2024-10-19 05:35 | XMS_ITS ---
Author Organization [facility] Address [address] [facility] [address] [place] [address] Care Team Providers Care Vocational Coordinator Name Role Phone TEVIN PELAEZ Primary Care Provider Declan Sims Jr REASON FOR VISIT labs Encounters Encounter Location Date Provider Diagnosis [facility] [address] [place] [address] [place] [address] 10/19/2024 Declan Raphael Jr Crohn''s disease of [...] Provider Name:Declan castro Jr, 04/03/2025 09:00:00 AM, [address] [place] [address], [address], [place], [address], Progress Notes * ANGELES ONOFREDOB: [birth year] (29 yo F)Acc No.[id number]:10/19/2024 Patient: Tariq TIDWELL ANGELES :1995 A ge:29 Y S ex:Female Address:[address] [place] [address] [place], [address] Subjective: * Chief Complaints: * L abs * Medical History: * Surgical History: * Hospitalization/Major Diagno stic Procedure: * Medications: Objective: * Vitals: * Physical Examination: Assessment: * Assessment: 1. C rohn''s disease of both small and large intestine with rectal bleeding - K50.811 (Primary)? Plan: * Treatment: * Procedure Codes: * true * Date: Generated for Brigid trotter/Mouna/Tomeritting on: 0 10/21/2024 07:05 AM EDT
--- OUTSIDE RECORDS SUMMARY | 2024-10-21 07:04 | XMS_ITS | Encounter Summary ---
Author Organization [facility] [place] [facility] Address [address] [address] Phone Care Team Providers Care Frame Wirer Name Role Phone David Quinn MD Primary Care Provider Ramonita Ochoa RAIL SETTER Unavailable [phone] Kelton Rahman MD Unavailable Nayana Murray RAIL SETTER Unavailable Unavailable Elisha Thompson IMCU SPECIALIST Unavailable Ashia Rizzo MD Unavailable David Quinn MD Unavailable [phone] David Quinn MD Unavailable [phone] Unknown, Unknown Primary Care Provider Debbie pradhan Encounter Details Date Type Department Care Team (Late st Contact Info) Description 03/12/2017 Ancillary Orders [facility] Orthopedics & Sports Medicine [address] [place] [address] Noemy Morales PA-C [address] [place] [address] Orthopedics & Sports Medicine, [facility] [place], [place] [id number] [email or web address] Social History Tobacco Use [...] on filedocumented in this encounter Care Teams Frame Wirer Relationship Specialty Start Date End Date David Quinn MD [address] [place] [address], [address] [place] [address] PCP - General 12/02/16 06/13/19 Unknown, Jaqueline, [address] [place] [address], [address] [place] [address] PCP - General 06/14/19 Ramonita Ochoa NP [address] [place] [address] [email or web address] Historical LMR Provider 12/06/16 Kelton Rahman MD [address] [place] [address], [address], [address] [place] [address] Historical LMR Provider 12/06/16 02/23/21 Nayana Murray RAIL SETTER Historical LMR Provider 12/06/16 02/23/21 Elisha Thompson FNP [address] [facility], [address], [address] [place] [address] [email or web address] Historical LMR Provider 12/06/16 02/23/21 Ashia Rizzo MD [address] [facility], [address], [address] [place] [address] Historical LMR Provider 12/06/16 02/23/21 David Quinn MD [address] [place] [address], [address] [place] [address] Historical LMR Provider 12/06/16 David Quinn MD [address] [place] [address], [address] [place] [address] [email or web address] Insurance Assigned Provider 05/22/18 documented as of this encounter Additional Source Comments The information contained in this document represents components of the legal health record. It is not the complete legal health record.[facility]
--- OUTSIDE RECORDS SUMMARY | 2024-10-21 07:04 | XMS_ITS | Encounter Summary ---
Author Organization [facility] Address [address] [address] Phone Care Team Providers Care Inspector Final Assembly Mechanical Name Role Phone David Quinn MD Primary Care Provider Ramonita Ochoa RELOCATION MANAGER Unavailable Kelton Rahman MD Unavailable Nayana Murray RELOCATION MANAGER Unavailable Unavailable Elisha Thompson BIRD CAGE ASSEMBLER Unavailable Ashia Rizzo MD Unavailable David Quinn MD Unavailable [phone] David Quinn MD Unavailable [phone] Unknown, Unknown Primary Care Provider Debbie pradhan Encounter Details Date Type Department Care Team (Late st Contact Info) Description 03/02/2017 Ancillary Orders [address] [address] Noemy Morales PA-C [address] [place] [address] Orthopedics & Sports Medicine, [place] [address] [email or web address] Right ankle pain, unspecified [...] VIEWS (RIGHT) (03/04/2017 2:51 PM EST) Narrative Ramonita Garza - 03/04/2017 2:51 PM EST This [...] chronicity documented in this encounter Care Teams Inspector Final Assembly Mechanical Relationship Specialty Start Date End Date David Quinn MD [address] [place] [address], [address] [place] [address] [email or web address] PCP - General 12/02/16 06/13/19 Unknown, Jaqueline, [address] [place] [address], [address] [place] [address] PCP - General 06/14/19 Ramonita Ochoa NP [address] [place] [address] [email or web address] Historical LMR Provider 12/06/16 Kelton Rahman MD [address] [place] [address] [address], [address] [place] [address] Historical LMR Provider 12/06/16 02/23/21 Nayana Murray NP Historical LMR Provider 12/06/16 02/23/21 Eilsha Thompson FNP [address] [facility]. [address], [address] [place] [address] Historical LMR Provider 12/06/16 02/23/21 Ashia Rizzo MD [address] [facility], [address], [address] [place] [address] [email or web address] Historical LMR Provider 12/06/16 02/23/21 David Quinn MD [address] [place] [address], [address] [place] [address] Historical LMR Provider 12/06/16 David Quinn MD [address] [place] [address], [address] [place] [address] Insurance Assigned Provider 05/22/18 documented as of this encounter Additional Source Comments The information contained in this document represents components of the legal health record. It is not the complete legal health record.[facility]
--- OUTSIDE RECORDS SUMMARY | 2024-10-21 07:04 | XMS_ITS | Encounter Summary ---
Author Organization [facility] Address [address] [address] Phone Care Team Providers Care Manufacturing Teacher Name Role Phone David Quinn MD Primary Care Provider Ramonita Ochoa INTERNATIONAL OPERATIONS MANAGER Unavailable Kelton Rahman MD Unavailable Nayana Murray INTERNATIONAL OPERATIONS MANAGER Unavailable Unavailable Elisha Thompson SITE SAFETY COORDINATOR Unavailable Ashia Rizzo MD Unavailable David Quinn MD Unavailable [phone] Dvaid Quinn MD Unavailable [phone] Unknown, Unknown Primary Care Provider Debbie pradhan Encounter Details Date Type Department Care Team (Late st Contact Info) Description 03/12/2017 Ancillary Orders [address] [address] Noemy Morales PA-C [address] [place] [address] Orthopedics & Sports Medicine, [place] [address] [email or web address] Right ankle pain, unspecified chronicity Social History [...] chronicity documented in this encounter Care Teams Manufacturing Teacher Relationship Specialty Start Date End Date David Quinn MD [address] [place] [address], [address] [place] [address] [email or web address] PCP - General 12/02/16 06/13/19 Jaqueline, Jaqueline, [address] [place] [address], [address] [place] [address] PCP - General 06/14/19 Ramonita Ochoa NP [address] [place] [address] [email or web address] Historical LMR Provider 12/06/16 Kelton Rahman MD [address] [place] [address] 204, [address] [place] [address] Historical LMR Provider 12/06/16 02/23/21 Nayana Murray NP Historical LMR Provider 12/06/16 02/23/21 Elisha Thompson FNP [address] [facility], [address], [address] [place] [address] Historical LMR Provider 12/06/16 02/23/21 Ashia Rizzo MD [address] [facility], [address], [address] [place] [address] [email or web address] Historical LMR Provider 12/06/16 02/23/21 David Quinn MD [address] [place] [address], [address] [place] [address] Historical LMR Provider 12/06/16 David Quinn MD [address] [place] [address], [address] [place] [address] Insurance Assigned Provider 05/22/18 documented as of this encounter Additional Source Comments The information contained in this document represents components of the legal health record. It is not the complete legal health record.[facility]
--- OUTSIDE RECORDS SUMMARY | 2024-10-21 07:04 | XMS_ITS | Clinical Summary ---
Author Organization [facility] Address [address] [address] Phone Care Team Providers Care Social Service Worker Name Role Phone David Quinn MD Unavailable [phone] Unknown, Unknown MD Primary Care Provider [...] OF STATE PPO BLUE CROSS OUT OF [facility] PPO BLUE CROSS OUT OF STATE PPO OUT OF [facility] [place] [address] [place] [address] OUT OF [facility] PPO OUT OF STATE PPO OUT [facility] PPO BLUE CROSS OUT OF STATE PPO Care Teams Social Service Worker Relationship Specialty Start Date End Date Unknown, Unknown, [address] [place] [address], [address] [place] [address] PCP - General 06/14/19 David Quinn MD [address] [place] [address], [address] [place] [address] [email or web address] Historical LMR Provider 12/06/16 Additional Source Comments The information contained in this document represents components of the legal health record. It is not the complete legal health record.[facility]
--- OUTSIDE RECORDS SUMMARY | 2024-10-21 07:04 | XMS_ITS | Encounter Summary ---
Author Organization [facility] Address [address] [address] Phone Care Team Providers Care Respiratory Director Name Role Phone David Quinn MD Primary Care Provider Ramonita Ochoa HOPPER FILLER Unavailable [phone] Kelton Rahman MD Unavailable Nayana Murray HOPPER FILLER Unavailable Unavailable Elisha Thompson LOCKER ATTENDANT Unavailable Ashia Rizzo MD Unavailable David Quinn MD Unavailable [phone] David Quinn MD Unavailable [phone] Unknown, Unknown Primary Care Provider Debbie pradhan Encounter Details Date Type Department Care Team (Late st Contact Info) Description 03/02/2017 Ancillary Orders [facility] Orthopedics & Sports Medicine [address] [place] [address] Noemy Morales PA-C [address] [place] [address] Orthopedics & Sports Medicine, [facility] [place], [place] [id number] [email or web address] Social History Tobacco Use Types Packs/Day Years [...] on filedocumented in this encounter Care Teams Respiratory Director Relationship Specialty Start Date End Date David Quinn MD [address] [place] [address], [address] [place] [address] PCP - General 12/02/16 06/13/19 Unknown, Jaqueline, [address] [place] [address], [address] [place] [address] PCP - General 06/14/19 Ramonita Ochoa NP [address] [place] [address] [email or web address] Historical LMR Provider 12/06/16 Kelton Rahman MD [address] [place] [address], [address], [address] [place] [address] Historical LMR Provider 12/06/16 02/23/21 Nayana Murray HOPPER FILLER Historical LMR Provider 12/06/16 02/23/21 Elisha Thompson FNP [address] [facility], [address], [address] [place] [address] [email or web address] Historical LMR Provider 12/06/16 02/23/21 Ashia Rizzo MD [address] [facility], [address], [address] [place] [address] Historical LMR Provider 12/06/16 02/23/21 David Quinn MD [address] [place] [address], [address] [place] [address] Historical LMR Provider 12/06/16 David Quinn MD [address] [place] [address], [address] [place] [address] [email or web address] Insurance Assigned Provider 05/22/18 documented as of this encounter Additional Source Comments The information contained in this document represents components of the legal health record. It is not the complete legal health record.[facility]
--- OUTSIDE RECORDS SUMMARY | 2024-10-21 07:04 | XMS_ITS | Encounter Summary ---
Author Organization [facility] Address [address] [facility] [address] [place] [address] Phone Care Team Providers Care J2Ee Software Engineer Name Role Phone David Qunin MD Unavailable [phone] Unknown, Unknown Primary Care Provider Debbie pradhan Encounter Details Date Type Department Care Team (Late st Contact Info) Description 08/11/2021 Procedure [facility], [facility] - [facility] [address] [place] [address] Social History Tobacco Use Types Packs/Day Years [...] 5:06 PM YADYT Maricruz Sanchez RN * Pine Suicide Severity Rating Scale (Screener/Recent Self-Report) Question [...] documented as of this encounter Care Teams J2Ee Software Engineer Relationship Specialty Start Date End Date Unknown, Unknown, [address] [place] [address], [address] [place] [address] PCP - General 06/14/19 David Quinn MD [address] [place] [address], [address] [place] [address] [email or web address] Historical LMR Provider 12/06/16 documented as of this encounter Additional Source Comments The information contained in this document represents components of the legal health record. It is not the complete legal health record.[facility]
--- OUTSIDE RECORDS SUMMARY | 2024-10-21 07:05 | XMS_ITS | Encounter Summary ---
Author Organization [facility] Address [address] [address] Phone Care Team Providers Care Posting Specialist Name Role Phone David Quinn MD Primary Care Provider Ramonita Ochoa PILLOWCASE SEWER Unavailable [phone] Kelton Rahman MD Unavailable Nayana Murray PILLOWCASE SEWER Unavailable Unavailable Elisha Thompson TOBACCO BUYER Unavailable Ashia Rizzo MD Unavailable David Quinn MD Unavailable [phone] David Quinn MD Unavailable [phone] Unknown, Unknown Primary Care Provider Dbebie pradhan Encounter Details Date Type Department Care Team (Late st Contact Info) Description 02/26/2017 Ancillary Orders [address] [address] Noemy Morales PA-C [address] [place] [address] Orthopedics & Sports Medicine, [place] [address] [email or web address] Right ankle pain, unspecified chronicity [...] chronicity documented in this encounter Care Teams Posting Specialist Relationship Specialty Start Date End Date David Quinn MD [address] [place] [address], [address] [place] [address] PCP - General 12/02/16 06/13/19 Unknown, Jaqueline, [address] [place] [address], [address] [place] [address] PCP - General 06/14/19 Ramonita Ochoa NP [address] [place] [address] [email or web address] Historical LMR Provider 12/06/16 Kelton Rahman MD [address] [place] [address] [address], [address] [place] [address] Historical LMR Provider 12/06/16 02/23/21 Nayana Murray NP Historical LMR Provider 12/06/16 02/23/21 Jay Elisha BLAIR Lopez 38 [facility]. 204, [address] [place] [address] Historical LMR Provider 12/06/16 02/23/21 Ashia Rizzo MD 38 [facility], [place], [address] [place] [address] [email or web address] Historical LMR Provider 12/06/16 02/23/21 David Quinn MD [address] [place] [address], [address] [place] [address] Historical LMR Provider 12/06/16 David Quinn MD [address] [place] [address], [address] [place] [address] Insurance Assigned Provider 05/22/18 documented as of this encounter Additional Source Comments The information contained in this document represents components of the legal health record. It is not the complete legal health record.[facility]
--- OUTSIDE RECORDS SUMMARY | 2024-10-21 07:05 | XMS_ITS | Encounter Summary ---
Author Organization [facility] Address [address] [address] Phone Care Team Providers Care Boat Ride Operator Name Role Phone David Quinn MD Primary Care Provider Ramonita Ochoa BURNISHER Unavailable Kelton Rahman MD Unavailable Nayana Murray BURNISHER Unavailable Unavailable Elisha Thompson STEP DOWN NURSE Unavailable Ashia Rizzo MD Unavailable David Quinn MD Unavailable [phone] David Quinn MD Unavailable [phone] Unknown, Unknown Primary Care Provider Debbie pradhan Encounter Details Date Type Department Care Team (Late st Contact Info) Description 02/26/2017 Ancillary Orders [facility] Orthopedics & Sports Medicine [address] [place] [address] Noemy Morales PA-C [address] [place] [address] Orthopedics & Sports Medicine, [facility]. [place], [place] [id number] [email or web address] Social History Tobacco Use Types Packs/Day Years [...] on filedocumented in this encounter Care Teams Boat Ride Operator Relationship Specialty Start Date End Date David Quinn MD [address] [place] [address], [address] [place] [address] PCP - General 12/02/16 06/13/19 Unknown, Jaqueline, [address] [place] [address], [address] [place] [address] PCP - General 06/14/19 Ramonita Ochoa NP [address] [place] [address] [email or web address] Historical LMR Provider 12/06/16 Kelton Rahman MD [address] [place] [address], [address], [address] [place] [address] Historical LMR Provider 12/06/16 02/23/21 Nayana Murray BURNISHER Historical LMR Provider 12/06/16 02/23/21 Elisha Thompson FNP 38 [facility], [place] 204, [address] [place] [address] [email or web address] Historical LMR Provider 12/06/16 02/23/21 Ashia Rizzo MD 38 [facility], [place], [address] [place] [address] Historical LMR Provider 12/06/16 02/23/21 David Quinn MD [address] [place] [address], [address] [place] [address] Historical LMR Provider 12/06/16 David Quinn MD [address] [place] [address], [address] [place] [address] [email or web address] Insurance Assigned Provider 05/22/18 documented as of this encounter Additional Source Comments The information contained in this document represents components of the legal health record. It is not the complete legal health record.[facility]
--- OUTSIDE RECORDS SUMMARY | 2024-10-21 07:05 | XMS_ITS | Encounter Summary ---
Author Organization [facility] Address [address] [address] Phone Care Team Providers Care Manager Government Name Role Phone David Quinn MD Primary Care Provider Ramonita Ochoa SCHOLARSHIP COUNSELOR Unavailable [phone] Kelton Rahman MD Unavailable Nayana Murray SCHOLARSHIP COUNSELOR Unavailable Unavailable Elisha Thompson SYSTEMS ENG Unavailable [phone] Ashia Rizzo MD Unavailable David Quinn MD Unavailable [phone] David Quinn MD Unavailable [phone] Unknown, Unknown Primary Care Provider Debbie pradhan Encounter Details Date Type Department Care Team (Late st Contact Info) Description 05/15/2017 Ancillary Orders [address] [address] Noemy Morales PA-C [address] [place] [address] Orthopedics & Sports Medicine, [place] [address] [email or web address] Right ankle pain, unspecified chronicity Social History [...] chronicity documented in this encounter Care Teams Manager Government Relationship Specialty Start Date End Date David Quinn MD [address] [place] [address], [address] [place] [address] PCP - General 12/02/16 06/13/19 Unknown, MD Jaqueline [address] [place] [address], [address] [place] [address] PCP - General 06/14/19 Ramonita Ochoa NP [address] [place] [address] [email or web address] Historical LMR Provider 12/06/16 Kelton Rahman MD [address] [place] [address] 204, [address] [place] [address] Historical LMR Provider 12/06/16 02/23/21 Nayana Murray NP Historical LMR Provider 12/06/16 02/23/21 Elisha ThompsonBLAIR 38 [facility], [place], [address] [place] [address] Historical LMR Provider 12/06/16 02/23/21 Ashia Rizzo MD [address], [place], [address] [place] [address] Historical LMR Provider 12/06/16 02/23/21 David Quinn MD [address] [place] [address], [address] [place] [address] Historical LMR Provider 12/06/16 David Quinn MD [address] [place] [address], [address] [place] [address] Insurance Assigned Provider 05/22/18 documented as of this encounter Additional Source Comments The information contained in this document represents components of the legal health record. It is not the complete legal health record.[facility]
--- OUTSIDE RECORDS SUMMARY | 2024-10-21 07:05 | XMS_ITS | Patient Health Record ---
Author Organization [facility] Address [address] [place] [address] Care Team Providers Care Physician Credentialing Specialist Name Role Phone TEVIN PELAEZ Primary Care Provider Declan Sims Jr Unavailable [phone] Allergies Allergen (clinical drug ingredient) Drug/Non Drug [...] ff Reviewed date:03/16/2024 08:28:05 AM Interpretation: Performing Lab:[facility], [address] [place] [phone] Notes/Report: White Blood Count 6.7 4.8-10.8 X10*3/uL [...] te Reviewed date:03/16/2024 08:27:51 AM Interpretation: Performing Lab:[facility], [address] [place] [phone] Notes/Report: Erythrocyte Sedimentation Rate 9 0-20 MM/HR Patients with polycythemia and many hemoglobin abnormalities may have depressed sed rates whereas patients with anemia may have elevated sed rates. Liver Panel Reviewed date:03/16/2024 08:27:45 AM Interpretation: Performing Lab:[address] [address] Notes/Report: Bilirubin Total 0.5 0.0-1.0 mg/dL Bilirubin Direct 0.2 0.0-0.5 mg/dL Aspartate Amino Transferase 19 5-31 U/L Alanine Aminotransferase 16 0-31 U/L Total Protein 7.7 6.5-8.0 g/dL Albumin Level 4.1 3.5-5.0 g/dL Alkaline Phosphatase 130 39-117 U/L C Reactive Protein Reviewed date:03/16/2024 08:27:58 AM Interpretation: Performing Lab:[address] [address] Notes/Report: C Reactive Protein 0.22 < or = 0.50 mg/dL Nereida Mckeon UST Reviewed date:03/22/2024 04:50:48 PM Interpretation: Performing Lab:[address] [phone] Notes/Report: Nereida Mckeon UST SEE NOTE SEE SCA NNED RESULTS IN EMR Complete Blood Count no Diff Reviewed date:07/28/2024 11:02:46 AM Interpretation: Performing Lab:[address] [address] Notes/Report: White Blood Count 4.9 4.8-10.8 X10*3/uL [...] te Reviewed date:07/28/2024 11:02:31 AM Interpretation: Performing Lab:[address] [address] Notes/Report: Erythrocyte Sedimentation Rate 7 0-20 MM/HR Patients with polycythemia and many hemoglobin abnormalities may have depressed sed rates whereas patients with anemia may have elevated sed rates. Liver Panel Reviewed date:07/28/2024 11:02:19 AM Interpretation: Performing Lab:[address] [phone] Notes/Report: Bilirubin Total 0.4 0.0-1.0 mg/dL Bilirubin Direct 0.2 0.0-0.5 mg/dL Aspartate Amino Transferase 18 5-31 U/L Alanine Aminotransferase 12 0-31 U/L Total Protein 7.3 6.5-8.0 g/dL Albumin Level 4.4 3.5-5.0 g/dL Alkaline Phosphatase 86 39-117 U/L C Reactive Protein Reviewed date:07/28/2024 11:02:07 AM Interpretation: Performing Lab:[facility], [address] [place] [phone] Notes/Report: C Reactive Protein 0.95 < or = 0.50 mg/dL Liver Fibrosis Pnl Reviewed date:08/05/2024 03:52:52 PM Interpretation: Performing Lab:[facility], [address] [place] [phone] Notes/Report: Liver Fibrosis Score 0.05 Liver Fibrosis [...] a>0.62 and a<=1.00 : A3 (severe activity) QXG-Ghkkf-2-Macroglobulin 192 106-279 mg/dL FIB-Haptoglobin 133 43-212 mg/dL FIB-Apolipoprotein A1 134 101-198 mg/dL FIB-Total Bilirubin 0.3 0.2-1.2 mg/dL FIB-GGT 10 3-40 U/L FIB-ALT 10 6-29 U/L Reference ID [id number] Footnote SEE NOTE The reliability of results [...] The performance characteristics have been determined by [facility]. It has not been cleared or approved by the U.S. Food and Drug Administration. Performance characteristics refer to the analytical performance of the test. [employer], the associated logo, [employer] and all associated [employer] boo are the registered trademarks of [employer]. All third libertarian boo - (R) and (TM) - are the property of their respective owners. (C) 3022-8172 [employer]. All rights reserved. THIS TEST WAS PERFORMED AT: [employer] [facility] [address] [place] [address] KAVITA PEREZ MD,PHD,DAVID Mitochondrial Antibody Reviewed date:08/02/2024 04:12:46 PM Interpretation: Performing Lab:[facility], [address] [place] [phone] Notes/Report: Mitochondrial Antibodies NEGATIVE NEGATIVE THIS TEST WAS PERFORMED AT: [facility] [address] [address] GIULIANO VIDAL MD Mitochondrial Ab Titer TNP Complete Blood Count no Diff Reviewed date:08/29/2024 08:05:02 AM Interpretation: Performing Lab:[facility], [address] [place] [phone] Notes/Report: White Blood Count 5.8 4.8-10.8 X10*3/uL [...] te Reviewed date:08/29/2024 08:04:40 AM Interpretation: Performing Lab:[facility], [address] [place] [phone] Notes/Report: Erythrocyte Sedimentation Rate 7 0-20 MM/HR Patients with polycythemia and many hemoglobin abnormalities may have depressed sed rates whereas patients with anemia may have elevated sed rates. Liver Panel Reviewed date:08/29/2024 08:04:53 AM Interpretation: Performing Lab:[facility], [address] [place] [phone] Notes/Report: Bilirubin Total 0.4 0.0-1.0 mg/dL Bilirubin Direct 0.1 0.0-0.5 mg/dL Aspartate Amino Transferase 16 5-31 U/L Alanine Aminotransferase 15 0-31 U/L Total Protein 7.9 6.5-8.0 g/dL Albumin Level 4.6 3.5-5.0 g/dL Alkaline Phosphatase 102 39-117 U/L C Reactive Protein Reviewed date:08/29/2024 08:04:43 AM Interpretation: Performing Lab:[facility], [address] [place] [phone] Notes/Report: C Reactive Protein 0.52 < or = 0.50 mg/dL Prometheus Anser UST Reviewed date:09/08/2024 09:44:14 AM Interpretation: Performing Lab:[facility], [address] [place] [phone] Notes/Report: Prometheus Anser UST SEE NOTE SEE SCA NNED RESULTS IN EMR. [employer] Monitr Crohn's Reviewed date:09/08/2024 09:44:45 AM Interpretation: Performing Lab:[facility], [address] [place] [phone] Notes/Report: [employer] Mon[employer] Crohn's SEE NOTE SE E SCANNED RESULTS IN EMR Liver Fibrosis Pnl Reviewed date:09/08/2024 09:44:25 AM Interpretation: Performing Lab:[facility], [address] [place] [phone] Notes/Report: Liver Fibrosis Score 0.04 Liver Fibrosis [...] a>0.62 and a<=1.00 : A3 (severe activity) UIR-Duglp-1-Macroglobulin 194 106-279 mg/dL FIB-Haptoglobin 179 43-212 mg/dL FIB-Apolipoprotein A1 164 101-198 mg/dL FIB-Total Bilirubin 0.4 0.2-1.2 mg/dL FIB-GGT 12 3-40 U/L FIB-ALT 11 6-29 U/L Reference ID [id number] Footnote SEE NOTE The reliability of results is dependent on compliance with the preanalytical and analytical conditions recommended by [employer]. The tests have to be deferred for: [...] The performance characteristics have been determined by [facility]. It has not been cleared or approved by the U.S. Food and Drug Administration. Performance characteristics refer to the analytical performance of the test. [employer], the associated logo, [employer] and all associated [employer] boo are the registered trademarks of [employer]. All third libertarian boo - (R) and (TM) - are the property of their respective owners. (C) 9464-6711 [employer]. All rights reserved. THIS TEST WAS PERFORMED AT: [employer] [facility] [address] [place] [address] KAVITA PEREZ MD,PHD,DAVID Mitochondrial Antibody Reviewed date:08/31/2024 03:59:24 PM Interpretation: Performing Lab:[facility], [address] [place] [phone] Notes/Report: Mitochondrial Antibodies NEGATIVE NEGATIVE THIS TEST WAS PERFORMED AT: [facility] [address] [place] [phone] GIULIANO VIDAL MD Mitochondrial Ab Titer TNP [...] Crohn's disease of small AND large intestines (82955068) Crohn''s disease of both small and large intestine with rectal bleeding (K50.811) Active confirmed Problem [id number] Alkaline phosphatase elevation (R74.8) Active confirmed Vital Signs Temperature 97.8 degrees Fahrenheit 03/28/2024 Blood pressure diastolic 00 mm Hg 03/28/2024 Height 65 in 03/28/2024 Blood pressure systolic 000 mm Hg 03/28/2024 Weight 188 lb 4 oz lbs 03/28/2024 BMI 31.32 kg/m2 03/28/2024 Encounters Encounter Location Date Provider Diagnosis [facility] [address] [place] [address] [place] [id number] 03/28/2024 Declan Raphael Jr Crohn's disease of both small and large intestine with rectal bleeding K50.811 and Alkaline phosphatase elevation R74.8 [facility] [address] [place] [phone] 03/22/2024 Declan Raphael Jr [facility] [address] [place] [id number] 07/01/2024 Declan Raphael Jr Crohn''s disease of both small and large intestine with rectal bleeding K50.811 [facility] [address] [place] [phone] 08/05/2024 Declan Raphael Jr [facility] [address] [place] [phone] 09/08/2024 Declan Raphael Jr [facility] [address] [place] [phone] 09/21/2024 Declan Raphael Jr [facility] [address] [place] [phone] 10/19/2024 Declan Raphael Jr Crohn''s disease of [...] alkaline phosphatase. She asked about taking an ncau-oow-zthboi r supplements for immune system health, which [...] alkaline phosphatase. She asked about taking an nayd-xzf-ulksfp r supplements for immune system health, which [...] 03/28/2024 LIVER PROFILE 10/13/2023 LIVER PROFILE 06/05/2022 LIVER PROFILE 10/19/2024 LIPASE 10/19/2024 LIPASE 11/06/2022 LIPASE 08/29/2022 LIPASE 07/08/2023 LIPASE 04/28/2022 LIPASE 06/05/2022 CRP 06/05/2022 CRP 03/28/2024 CRP 11/06/2022 CRP 08/29/2022 CRP 07/08/2023 CRP 10/13/2023 CBC w DIFF 10/19/2024 CBC w DIFF 06/05/2022 CBC w DIFF [...] Gennarocharito houselatrell Rogel, 04/03/2025 09:00:00 AM, [address], [address], [place], [address], Insurance Providers Payer Name Payer Address Payer Phone Subscriber Number Group Number Insured Name Patient Relationship to Insured Coverage Start Date Coverage End Date [facility] [address] [place] [address] [id number] ANGELES ONOFRE Self - patient is the [...]
--- OUTSIDE RECORDS SUMMARY | 2024-10-21 07:05 | XMS_ITS | Encounter Summary ---
Author Organization [facility] Address [address] [address] Phone Care Team Providers Care Coal Screener Name Role Phone David Quinn MD Primary Care Provider Ramonita Ochoa SUPERVISOR PARTIAL DENTURE DEPARTMENT Unavailable Kelton Rahman MD Unavailable Nayana Murray SUPERVISOR PARTIAL DENTURE DEPARTMENT Unavailable Unavailable Elisha Thompson OCCUPATIONAL THERAPY SUPERVISOR Unavailable [phone] Ashia Rizzo MD Unavailable David Quinn MD Unavailable [phone] David Quinn MD Unavailable Unknown, Unknown Primary Care Provider Debbie pradhan Encounter Details Date Type Department Care Team (Late st Contact Info) Description 04/17/2017 Ancillary Orders [facility] Medical [facility] Orthopedics & Sports Medicine [address] [place] [address] Noemy Morales PA-C [address] [place] [address] Orthopedics & Sports Medicine, [facility] [place], [place] [address] [email or web address] Social History Tobacco Use Types Packs/Day Years [...] on filedocumented in this encounter Care Teams Coal Screener Relationship Specialty Start Date End Date David Quinn MD [address] [place] [address], [address] [place] [address] PCP - General 12/02/16 06/13/19 Unknown, Jaqueline, [address] [place] [address], [address] [place] [address] PCP - General 06/14/19 Ramonita Ochoa NP [address] [place] [address] [email or web address] Historical LMR Provider 12/06/16 Kelton Rahman MD [address] [place] [address], [address], [address] [place] [address] Historical LMR Provider 12/06/16 02/23/21 Nayana Murray SUPERVISOR PARTIAL DENTURE DEPARTMENT Historical LMR Provider 12/06/16 02/23/21 Elisha Thompson FNP 38 [facility], [address], [address] [place] [address] [email or web address] Historical LMR Provider 12/06/16 02/23/21 Ashia Rizzo MD 38 [facility], [place], [address] [place] [address] Historical LMR Provider 12/06/16 02/23/21 David Quinn MD [address] [place] [address], [address] [place] [address] Historical LMR Provider 12/06/16 David Quinn MD [address] [place] [address], [address] [place] [address] [email or web address] Insurance Assigned Provider 05/22/18 documented as of this encounter Additional Source Comments The information contained in this document represents components of the legal health record. It is not the complete legal health record.[facility]
--- OUTSIDE RECORDS SUMMARY | 2024-10-21 07:05 | XMS_ITS | Encounter Summary ---
Author Organization [facility] Address [address] [address] Phone Care Team Providers Care Marketing Officer Name Role Phone David Quinn MD Primary Care Provider Ramonita Ochoa COUNTER STACKER Unavailable Kelton Rahman MD Unavailable Nayana Murray COUNTER STACKER Unavailable Unavailable Elisha Thompson AUTO REBUILDER Unavailable Ashia Rizzo MD Unavailable David Quinn MD Unavailable [phone] David Quinn MD Unavailable [phone] Unknown, Unknown Primary Care Provider Debbie pradhan Encounter Details Date Type Department Care Team (Late st Contact Info) Description 05/15/2017 Ancillary Orders [facility] Orthopedics & Sports Medicine [address] [place] [address] Noemy Morales PA-C [address] [place] [address] Orthopedics & Sports Medicine, [facility]. [place], [place] [id number] [email or web address] Social History Tobacco [...] on filedocumented in this encounter Care Teams Marketing Officer Relationship Specialty Start Date End Date David Quinn MD [address] [place] [address], [address] [place] [address] PCP - General 12/02/16 06/13/19 Unknown, Jaqueline, [address] [place] [address], [address] [place] [address] PCP - General 06/14/19 Ramonita Ochoa NP [address] [place] [id number] [email or web address] Historical LMR Provider 12/06/16 Kelton Rahman MD [address] [place] [address], [address], [address] [place] [address] Historical LMR Provider 12/06/16 02/23/21 Nayana Murray COUNTER STACKER Historical LMR Provider 12/06/16 02/23/21 Elisha Thompson FNP 38 [facility], [address], [address] [place] [address] [email or web address] Historical LMR Provider 12/06/16 02/23/21 Ashia Rizzo MD 38 [facility], [address], [address] [place] [address] Historical LMR Provider 12/06/16 02/23/21 David Quinn MD [address] [place] [address], [address] [place] [address] Historical LMR Provider 12/06/16 David Quinn MD [address] [place] [address], [address] [place] [address] [email or web address] Insurance Assigned Provider 05/22/18 documented as of this encounter Additional Source Comments The information contained in this document represents components of the legal health record. It is not the complete legal health record.[facility]
--- OUTSIDE RECORDS SUMMARY | 2024-10-21 07:05 | XMS_ITS | Encounter Summary ---
Author Organization [facility] Address [address] [address] Phone Care Team Providers Care Brick Handler Name Role Phone David Quinn MD Primary Care Provider Ramonita Ochoa FITNESS PROFESSIONAL Unavailable Kelton Rahman MD Unavailable Nayana Murray FITNESS PROFESSIONAL Unavailable Unavailable Elisha Thompson MARGIN ANALYST Unavailable Ashia Rizzo MD Unavailable David Quinn MD Unavailable [phone] David Quinn MD Unavailable [phone] Unknown, Unknown Primary Care Provider Debbie pradhan Encounter Details Date Type Department Care Team (Late st Contact Info) Description 04/02/2017 Ancillary Orders [address] [address] Noemy Morales PA-C [address] [place] [address] Orthopedics & Sports Medicine, [place] [address] [email or web address] Right ankle pain, unspecified chronicity Social History [...] chronicity documented in this encounter Care Teams Brick Handler Relationship Specialty Start Date End Date Daivd Quinn MD [address] [place] [address], [address] [place] [address] PCP - General 12/02/16 06/13/19 Jaqueline, MD Jaqueline [address] [place] [address], [address] [place] [address] PCP - General 06/14/19 Ramonita Ochoa NP [address] [place] [id number] [email or web address] Historical LMR Provider 12/06/16 Kelton Rahman MD [address] [place] [address], [address] [place] [address] maria Historical LMR Provider 12/06/16 02/23/21 Nayana Murray NP Historical LMR Provider 12/06/16 02/23/21 Elisha Thompson, BLAIR [address], [address] [place] [address] Historical LMR Provider 12/06/16 02/23/21 Ashia Rizzo MD [address], [address] [place] [address] Historical LMR Provider 12/06/16 02/23/21 David Quinn MD [address] [place] [address], [address] [place] [address] Historical LMR Provider 12/06/16 David Quinn MD [address] [place] [address], [address] [place] [address] Insurance Assigned Provider 05/22/18 documented as of this encounter Additional Source Comments The information contained in this document represents components of the legal health record. It is not the complete legal health record.[facility]
--- OUTSIDE RECORDS SUMMARY | 2024-10-21 07:05 | XMS_ITS | Encounter Summary ---
Author Organization [facility] Address [address] [address] Phone Care Team Providers Care Bone Glue Maker Name Role Phone David Quinn MD Primary Care Provider Ramonita Ochoa BELT BACK OPERATOR Unavailable [phone] Kelton Rahman MD Unavailable Nayana Murray BELT BACK OPERATOR Unavailable Unavailable Elisha Thompson TEAM LEADER/RESEARCH PSYCHOLOGIST Unavailable Ashia Rizzo MD Unavailable David Quinn MD Unavailable [phone] David Quinn MD Unavailable [phone] Unknown, Unknown Primary Care Provider Debbie pradhan Encounter Details Date Type Department Care Team (Late st Contact Info) Description 04/02/2017 Ancillary Orders [facility] [address] [place] [address] Noemy Morales PA-C [address] [place] [address] Orthopedics & Sports Medicine, [facility] [place], [place] [id number] [email or web address] Social History Tobacco Use Types Packs/Day Years [...] on filedocumented in this encounter Care Teams Bone Glue Maker Relationship Specialty Start Date End Date David Quinn MD [address] [place] [address], [address] [place] [address] PCP - General 12/02/16 06/13/19 Unknown, Jaqueline, [address] [place] [address], [address] [place] [address] PCP - General 06/14/19 Ramonita Ochoa NP [address] [place] [phone] [email or web address] Historical LMR Provider 12/06/16 Kelton Rahman MD [address] [place] [address], [address], [address] [place] [address] Historical LMR Provider 12/06/16 02/23/21 Nayana Murray BELT BACK OPERATOR Historical LMR Provider 12/06/16 02/23/21 Elisha Thompson FNP [address] [facility], [address], [address] [place] [address] [email or web address] Historical LMR Provider 12/06/16 02/23/21 Ashia Rizzo MD [address] [facility], [address], [address] [place] [address] Historical LMR Provider 12/06/16 02/23/21 David Quinn MD [address] [place] [address], [address] [place] [address] Historical LMR Provider 12/06/16 David Quinn MD [address] [place] [address], [address] [place] [address] [email or web address] Insurance Assigned Provider 05/22/18 documented as of this encounter Additional Source Comments The information contained in this document represents components of the legal health record. It is not the complete legal health record.[facility]
--- OUTSIDE RECORDS SUMMARY | 2024-10-21 07:05 | XMS_ITS | Encounter Summary ---
Author Organization [facility] Address [address] [address] Phone Care Team Providers Care Forklift Picker Name Role Phone David Quinn MD Primary Care Provider Ramonita Ochoa HEALTH INFORMATION SYSTEMS TECHNICIAN Unavailable Kelton Rahman MD Unavailable Nayana Murray HEALTH INFORMATION SYSTEMS TECHNICIAN Unavailable Unavailable Elisha Thompson ELECTRONIC WARFARE OFFICER Unavailable Ashia Rizzo MD Unavailable David Quinn MD Unavailable [phone] David Quinn MD Unavailable [phone] Unknown, Unknown Primary Care Provider Debbie pradhan Encounter Details Date Type Department Care Team (Late st Contact Info) Description 04/17/2017 Ancillary Orders [address] [address] Noemy Morales PA-C [address] [place] [address] Orthopedics & Sports Medicine, [place] [address] [email or web address] Right ankle pain, unspecified chronicity Social History [...] chronicity documented in this encounter Care Teams Forklift Picker Relationship Specialty Start Date End Date David Quinn MD [address] [place] [address], [address] [place] [address] PCP - General 12/02/16 06/13/19 Jaqueline, MD Jaqueline [address] [place] [address], [address] [place] [address] PCP - General 06/14/19 Ramonita Ochoa NP [address] [place] [id number] [email or web address] Historical LMR Provider 12/06/16 Kelton Rahman MD [address] [place] [address], [address] [place] [address] maria Historical LMR Provider 12/06/16 02/23/21 Nayana Murray NP Historical LMR Provider 12/06/16 02/23/21 Elisha Thompson, ELECTRONIC WARFARE OFFICER [address], [address] [place] [address] Historical LMR Provider 12/06/16 02/23/21 Ashia Rizzo MD [address], [address] [place] [address] Historical LMR Provider 12/06/16 02/23/21 David Quinn MD [address] [place] [address], [address] [place] [address] Historical LMR Provider 12/06/16 David Quinn MD [address] [place] [address], [address] [place] [address] Insurance Assigned Provider 05/22/18 documented as of this encounter Additional Source Comments The information contained in this document represents components of the legal health record. It is not the complete legal health record.[facility]
[2024-10-21 07:20] LABS: MANUAL DIFF FLAG NO
[2024-10-21 07:41] LABS: Hematocrit 41.7 % (37.0-47.0); Hemoglobin 14.3 g/dl (12.0-16.0); Imm Gran Abs Auto 0.02 X10*3/uL (0.00-0.03); Imm Gran Pct Auto 0.3 % (0.0-0.4); Lymphocytes Absolute Auto 1.9 X10*3/uL (1.2-4.9); Mean Corpuscular HGB Conc 34.3 g/dl (31.0-35.0); Mean Corpuscular Hemoglobin 30.7 pg (27.0-33.0); Mean Corpuscular Volume 89.5 fL (80.0-98.0); NRBC Abs Auto 0.000 X10*3/uL (0.0-0.012); NRBC Pct Auto 0.0 /100WBC (0.0-0.2); Platelet Count 242 X10*3/uL (160-400); Red Blood Count 4.66 X10*6/uL (4.20-5.50); White Blood Count 5.9 X10*3/uL (4.8-10.8)
[2024-10-21 08:14] LABS: Alanine Aminotransferase 17 U/L (0-31); Albumin Level 4.5 g/dL (3.5-5.0); Alkaline Phosphatase 74 U/L (39-117); Aspartate Amino Transferase 18 U/L (5-31); Lipase 29 U/L (8-78); Total Protein 7.4 g/dL (6.5-8.0)
== END 2024-10-21 06:57 | disposition home or self-care (01) ==
LOC: HO.LAB 06:56
PROVIDERS: PCP Internal Medicine Sports Medicine; Visit Provider Internal Medicine Gastroenterology
DX: K50.811 Crohn's disease of both small and large intestine with rectal bleeding (principal)
CPT/HCPCS: 36415; 80076; 80299; 82397; 82542; 83520; 83690; 85025; 86141